=== PATIENT | male | born 1985 ===

== ENCOUNTER 2016-11-09 13:26 | Emergency (ER) | payer SELFPAY ==
[2016-11-09 13:45] VITALS: BMI 24.2
[2016-11-09 13:47] VITALS: TEMP 98.5; O2SAT 100
[2016-11-09] MEDS ORDERED: Sodium Chloride 0.9% 1,000 ML ONE ×3 (13:59→15:31)
[2016-11-09] MEDS ORDERED: Sodium Chloride 0.9% 1,000 ML IV ONE ×2 (14:12→15:19)
[2016-11-09 14:39] LABS: BASO # 0.1 K/uL (0.0-0.2); BASO % 0.9 % (0.0-2.0); EOS # 0.2 K/uL (0.0-0.7); EOS % 2.2 % (0.0-4.0); HEMATOCRIT 44.7 % (35.0-51.0); LYMPH # 3.2 K/uL (1.0-4.3); LYMPH % 44.7 % (20.0-40.0); MEAN CORPUSCULAR HEMOGLOBIN 28.4 pg (27.0-31.0); MEAN PLATELET VOLUME 8.9 fL (7.2-11.7); MONO # 0.4 K/uL (0.0-0.8); MONO % 5.7 % (0.0-10.0); WHITE BLOOD COUNT 7.1 K/uL (4.8-10.8)
[2016-11-09 14:42] LABS: MEAN CELL VOLUME 83.6 fL (80.0-94.0)
[2016-11-09 14:53] LABS: CHLORIDE 101 mmol/L (98-107); POTASSIUM 3.9 mmol/L (3.6-5.2); SODIUM 139 mmol/L (132-148)
[2016-11-09 14:55] LABS: GFR AFRICAN-AMERICAN > 60
[2016-11-09 14:56] LABS: ALB/GLOB RATIO 1.3 (1.0-2.1); ALKALINE PHOSPHATASE 70 U/L (38-126); ALT/SGPT 37 U/L (21-72); AST/SGOT 53 U/L (17-59); BILIRUBIN,TOTAL 0.8 mg/dL (0.2-1.3); BLOOD UREA NITROGEN 12 mg/dL (9-20); CALCIUM 8.5 mg/dl (8.6-10.4); CARBON DIOXIDE 19 mmol/L (22-30); GLUCOSE,RANDOM 102 mg/dL (75-110); TOTAL PROTEIN 8.1 g/dL (6.3-8.3)
[2016-11-09 14:57] LABS: ALCOHOL SERUM 181 mg/dl (0-10)
[2016-11-09 15:08] VITALS: BP 129/86; PULSE 88; RESP 18
--- NOTE | 2016-11-09 15:34 | C.PDOC ---
Time Seen by Provider: 11/09/16 14:04 Chief Complaint (Nursing): GI Problem History Per: Patient Onset/Duration Of Symptoms: Hrs (since walking up this morning) Current Symptoms Are (Timing): Still Present Context: Other (Heavy alcohol consumption last night) Severity: Moderate Quality Of Discomfort: Unable To Describe Associated Symptoms: Nausea, Vomiting Exacerbating Factors: Food Alleviating Factors: None Additional History Per: Prior Records Past Medical History Reviewed: Historical Data, Nursing Documentation, Vital Signs Vital Signs: Last Vital Signs Temp 98.5 F 11/09/16 13:43 Pulse 88 11/09/16 15:08 Resp 18 11/09/16 15:08 BP 129/86 11/09/16 15:08 Pulse Ox 100 11/09/16 15:35 - Medical History PMH: Asthma (never hospitalized), Fractures (right hand/right ankle fracture) Other PMH: Alcohol abuse Other Surgeries: Right foot. Family History: States: Unknown Family Hx - Social History Hx Tobacco Use: No Hx Alcohol Use: Yes Hx Substance Use: Yes (Marijuana) - Immunization History Hx Tetanus Toxoid Vaccination: No Hx Influenza Vaccination: No Hx Pneumococcal Vaccination: No Review Of Systems Except As Marked, All Systems Reviewed And Found Negative. Constitutional: Positive for: Malaise. Negative for: Fever Cardiovascular: Positive for: Palpitations. Negative for: Chest Pain Respiratory: Negative for: Shortness of Breath, Hemoptysis Gastrointestinal: Positive for: Nausea, Vomiting. Negative for: Abdominal Pain , Diarrhea, Melena, Hematochezia, Hematemesis Genitourinary: Negative for: Dysuria Musculoskeletal: Negative for: Neck Pain, Back Pain, Leg Pain Skin: Negative for: Rash Neurological: Positive for: Dizziness. Negative for: Weakness, Numbness, Seizures, Altered Mental Status, Headache Physical Exam - Physical Exam Appears: Other (AOB. Uncomfortable.) Skin: Normal Color, Warm, Dry, No Rash Head: Atraumatic, Normacephalic Eye(s): bilateral: PERRL, EOMI Neck: Normal ROM, No Midline Cervical Tenderness, No Step Off Deformity, Supple Chest: Symmetrical, No Deformity Cardiovascular: Rhythm Regular Respiratory: Normal Breath Sounds, No Accessory Muscle Use Gastrointestinal/Abdominal: Soft, No Tenderness, No Distention Extremity: Normal ROM, No Calf Tenderness, Other (boot on right foot) Neurological/Psych: Oriented x3, Normal Motor, Normal Sensation ED Course And Treatment - Laboratory Results Result Diagrams: 11/09/16 14:35 11/09/16 14:35 Lab Interpretation: No Acute Changes ECG: Interpreted By Me, Viewed By Me ECG Rhythm: Sinus Tachycardia, Nonspecific Changes Rate From EC O2 Sat by Pulse Oximetry: 100 Pulse Ox Interpretation: Normal Progress Note: Pt feels much better and wants to go home. I offered him detox admission, but he refused. So I gave him a list of detox programs. Reassessment Condition: Improved Progress - Interventions Interventions:: Observation, Intravenous fluid - Medications Administered Intravenous: Antiemetic, H-2 matthew - Data Reviewed Data Reviewed: Lab, EKG, Old records - Patient Status Patient status: Mostly improved - Continuity of Care Discussed patient case with:: Patient, ED Nurse - Patient Plan Patient Plan: Discharge, F/U with PCP Disposition Counseled Patient/Family Regarding: Studies Performed, Diagnosis, Need For Followup, Rx Given - Disposition Referrals: [facility] at [facility] [place] [Outside] Disposition: HOME/ ROUTINE Disposition Time: 16:14 Condition: IMPROVED Additional Instructions: Avoid alcohol. Follow up in the clinic. Return to the ER if you develop abdominal pain, bleeding, worsening of symptoms or if you have any other concerns. Prescriptions: Famotidine [Pepcid] 20 mg PO BID #30 tab Instructions: Abuse of Alcohol (ED) - Clinical Impression Clinical Impression: Alcohol abuse
--- NOTE | 2016-11-11 08:50 | CARD ---
APPROVED REPORT EKG Measurement Heart [id number] <Conclusion> Sinus tachycardia Otherwise normal ECG
== END 2016-11-09 16:25 | disposition home or self-care (01) ==
LOC: C.ER 13:26
DX: F10.10 Alcohol abuse, uncomplicated (principal); Y90.6 Blood alcohol level of 120-199 mg/100 ml
CPT/HCPCS: 80053; 80320; 83735; 85025; 93005; 96361; 96374; 96375; 99285; J2765; J7040

== ENCOUNTER 2016-11-12 19:03 | Observation (INO) | payer SELFPAY ==
[2016-11-12 19:04] VITALS: BMI 24.3
[2016-11-12] MEDS ORDERED: Multivitamin (MVI) 10 ML, Thiamine 100 MG, Folic Acid 1 MG in Sodium Chloride 0.9% 1,00... IV STA (19:22)
--- NOTE | 2016-11-12 19:23 | C.PDOC ---
History Of Present Illness 31 y/o male presents to the ED with alcohol withdrawal. Pt usually drinks 3 pints whiskey daily for the past 12 years. Last drink 3 days ago. Pt complaining of shakiness, restlessness, seeing shadows, crawling sensation and tachycardia. Denies vomiting, diarrhea, fever, chest pain, SOB or any other complaints. Time Seen by Provider: 11/12/16 19:21 Chief Complaint (Nursing): Substance Abuse History Per: Patient History/Exam Limitations: no limitations Onset/Duration Of Symptoms: Days Current Symptoms Are (Timing): Still Present Severity: Moderate Involuntary Hold By: None Recent travel outside of the [place]: No Past Medical History Reviewed: Historical Data, Nursing Documentation, Vital Signs Vital Signs: Last Vital Signs Temp 98.5 F 11/12/16 23:45 Pulse 63 11/13/16 03:59 Resp 16 11/13/16 03:59 BP 129/75 11/12/16 23:45 Pulse Ox 99 11/13/16 03:59 - Medical History PMH: Asthma (never hospitalized), Fractures (right hand/right ankle fracture) Family History: States: Unknown Family Hx - Social History Hx Tobacco Use: No Hx Alcohol Use: Yes Hx Substance Use: Yes (Marijuana) - Immunization History Hx Tetanus Toxoid Vaccination: No Hx Influenza Vaccination: No Hx Pneumococcal Vaccination: No Review Of Systems Constitutional: Negative for: Fever, Chills Cardiovascular: Positive for: Other (tachycardic) Psych: Positive for: Other (shaking, crawling sensation, seeing shadows) Physical Exam - Physical Exam Appears: Non-toxic, No Acute Distress Skin: Warm, Dry, No Rash Head: Atraumatic, Normacephalic Neck: Supple Chest: Symmetrical Cardiovascular: Rhythm Regular (tachycardic), No Murmur Respiratory: No Rales, No Rhonchi, No Wheezing Gastrointestinal/Abdominal: Soft, No Tenderness Extremity: Bilateral: Atraumatic Neurological/Psych: Oriented x3, Normal Speech ED Course And Treatment - Laboratory Results Result Diagrams: 11/12/16 19:30 11/12/16 19:30 O2 Sat by Pulse Oximetry: 100 (room air) Pulse Ox Interpretation: Normal Progress Note: Plan: CXR, labs, UA, IV fluids, ativan Reevaluation Time: 05:21 Reassessment Condition: Improved Critical Care Time - Critical Care Note Total Time (in mins): 30 Documented critical care: time excludes all time spent performing seperately billable procedures. ED OBSERVATION Discharge: Yes Date of observation admission: 11/12/16 Time of observation admission: 23:49 - Observation admission statement Patient is being placed in observation because:: alcohol withdrawal - Goals of Observation Goals of observation are:: crisis eval Disposition Counseled Patient/Family Regarding: Studies Performed, Diagnosis, Need For Followup - Disposition Disposition: HOME/ ROUTINE Disposition Time: 19:21 Condition: FAIR - Clinical Impression Clinical Impression: Alcohol abuse - Scribe Statement The provider has reviewed the documentation as recorded by the Jayce Barrios Provider Attestation: All medical record entries made by the Jayce were at my direction and personally dictated by me. I have reviewed the chart and agree that the record accurately reflects my personal performance of the history, physical exam, medical decision making, and the department course for this patient. I have also personally directed, reviewed, and agree with the discharge instructions and disposition. Decision To Admit - . Patient Diagnosis: Alcohol abuse
[2016-11-12 19:37] LABS: BASO # 0.1 K/uL (0.0-0.2); BASO % 0.5 % (0.0-2.0); EOS # 0.2 K/uL (0.0-0.7); EOS % 1.4 % (0.0-4.0); HEMATOCRIT 46.3 % (35.0-51.0); LYMPH # 2.6 K/uL (1.0-4.3); LYMPH % 24.4 % (20.0-40.0); MEAN CELL VOLUME 84.4 fL (80.0-94.0); MEAN CORPUSCULAR HEMOGLOBIN 28.1 pg (27.0-31.0); MEAN CORPUSCULAR HGB CONC 33.3 g/dL (33.0-37.0); MONO # 0.7 K/uL (0.0-0.8); MONO % 6.5 % (0.0-10.0); NRBC % 0.1 % (0.0-2.0); RED CELL DISTRIBUTION WIDTH 14.8 % (11.5-14.5); WHITE BLOOD COUNT 10.5 K/uL (4.8-10.8)
[2016-11-12 19:47] LABS: CHLORIDE 99 mmol/L (98-107); POTASSIUM 3.9 mmol/L (3.6-5.2); SODIUM 136 mmol/L (132-148)
[2016-11-12 19:49] LABS: ALB/GLOB RATIO 1.4 (1.0-2.1); ALKALINE PHOSPHATASE 76 U/L (38-126); AST/SGOT 33 U/L (17-59); BILIRUBIN,TOTAL 0.6 mg/dL (0.2-1.3); BLOOD UREA NITROGEN 15 mg/dL (9-20); CARBON DIOXIDE 24 mmol/L (22-30); GFR AFRICAN-AMERICAN > 60; TOTAL PROTEIN 8.3 g/dL (6.3-8.3)
[2016-11-12 19:50] LABS: ALT/SGPT 38 U/L (21-72); CALCIUM 9.5 mg/dl (8.6-10.4); GLUCOSE,RANDOM 103 mg/dL (75-110)
[2016-11-12 19:51] LABS: ALCOHOL SERUM < 10 mg/dl (0-10)
[2016-11-12 20:13] LABS: RBC URINE 1 /hpf (0-3); URINE BILIRUBIN NEGATIVE (NEGATIVE); URINE BLOOD NEGATIVE (NEGATIVE); URINE COLOR Straw (YELLOW); URINE GLUCOSE (UA) NORMAL (Normal); URINE KETONE TRACE mg/dL (NEGATIVE); URINE LEUKOCYTE ESTERASE NEG Leu/uL (Negative); URINE PROTEIN NEGATIVE (NEGATIVE); URINE UROBILINOGEN NORMAL mg/dL (0.2-1.0); WBC URINE < 1 /hpf (0-5)
[2016-11-13 04:00] VITALS: RESP 16
[2016-11-13 05:37] VITALS: BP 118/81; PULSE 93; TEMP 98; O2SAT 96
--- NOTE | 2016-11-13 07:39 | RAD ---
PROCEDURE: CHEST RADIOGRAPH, 1 VIEW HISTORY: Detox/Psy COMPARISON: None available. FINDINGS: LUNGS: Clear. PLEURA: No pneumothorax or pleural fluid seen. CARDIOVASCULAR: Normal. OSSEOUS STRUCTURES: No significant abnormalities. VISUALIZED UPPER ABDOMEN: Normal. OTHER FINDINGS: None. IMPRESSION: No active disease.
== END 2016-11-13 05:22 | disposition home or self-care (01) ==
LOC: C.ER 19:03 → SUPCPDRO 19:03 → C.9OBSV 23:40
PROVIDERS: ADMIT Emergency Medicine; ATTEND Emergency Medicine
DX: F10.239 Alcohol dependence with withdrawal, unspecified (principal); J45.909 Unspecified asthma, uncomplicated

== ENCOUNTER 2017-09-12 23:09 | Emergency (ER) | payer SELFPAY ==
[2017-09-12 23:09] VITALS: BMI 24.3
[2017-09-12] MEDS ORDERED: Sodium Chloride 0.9% 1,000 ML ONE (23:26)
[2017-09-12] MEDS ORDERED: Sodium Chloride 0.9% 1,000 ML IV ONE ×3 (23:37→23:50)
[2017-09-13] MEDS ORDERED: Sodium Chloride 0.9% 1,000 ML ONE ×2 (00:06→00:30)
--- NOTE | 2017-09-13 00:14 | C.PDOC ---
History Of Present Illness 32 y/o male with a PMHx of chronic alcoholism presents to the ED after drinking for past few days, also admits to using marijuana. Patient complains of nausea. No vomiting. Also reports some shaking of the extremities. Time Seen by Provider: 09/12/17 23:40 Chief Complaint (Nursing): Substance Abuse History Per: Patient History/Exam Limitations: no limitations Onset/Duration Of Symptoms: Days Current Symptoms Are (Timing): Still Present Modifying Factor(s): Alcohol, Marijuana Past Medical History Reviewed: Historical Data, Nursing Documentation, Vital Signs Vital Signs: Last Vital Signs Temp 98 F 09/13/17 02:01 Pulse 75 09/13/17 02:01 Resp 16 09/13/17 02:01 BP 126/78 09/13/17 02:01 Pulse Ox 100 09/13/17 04:16 - Medical History PMH: Asthma (never hospitalized), Fractures (right hand/right ankle fracture) Denies: Chronic Kidney Disease Other PMH: Alcoholism Other Surgeries: Right ankle surgery Family History: States: Unknown Family Hx - Social History Hx Tobacco Use: No Hx Alcohol Use: Yes Hx Substance Use: Yes (Marijuana) - Immunization History Hx Tetanus Toxoid Vaccination: No Hx Influenza Vaccination: No Hx Pneumococcal Vaccination: No Review Of Systems Except As Marked, All Systems Reviewed And Found Negative. Constitutional: Negative for: Fever, Chills Respiratory: Negative for: Shortness of Breath Gastrointestinal: Positive for: Nausea. Negative for: Vomiting Musculoskeletal: Positive for: Other (shaking of extremities) Psych: Positive for: Withdrawal Physical Exam - Physical Exam Appears: Non-toxic, No Acute Distress Skin: Normal Color, Warm, Dry Head: Atraumatic, Normacephalic Eye(s): bilateral: Normal Inspection, PERRL, EOMI Nose: Normal Oral Mucosa: Moist Neck: Normal ROM, Supple Chest: Symmetrical Cardiovascular: Rhythm Regular, No Murmur Respiratory: Normal Breath Sounds, No Accessory Muscle Use Gastrointestinal/Abdominal: Soft, No Tenderness, No Distention Extremity: Normal ROM, No Tenderness, No Swelling, Other (No tremors noted) Pulses: Left Radial: Normal, Right Radial: Normal Neurological/Psych: Oriented x3, Normal Speech Gait: Steady ED Course And Treatment - Laboratory Results Result Diagrams: 09/13/17 00:10 09/13/17 00:10 O2 Sat by Pulse Oximetry: 100 (RA) Pulse Ox Interpretation: Normal Medical Decision Making Medical Decision Making: Time: 23:49 Initial Plan: --Basic blood work --Urine drug screen --Lipase --Urinalysis --IVF hydration --IV Zofran, 4 mg --Reevaluation Labs reviewed: U tox + cannabinoids. CBC and urine unremarkable. 00:55 Chemistry shows low potassium. Patient given 20 meq potassium chloride PO. 4:10 On reevaluation patient states he feels better, wants to go home. No longer having tremors. Disposition Counseled Patient/Family Regarding: Diagnosis - Disposition Referrals: [facility] [Outside] Disposition: HOME/ ROUTINE Disposition Time: 04:13 Condition: STABLE Prescriptions: Hydroxyzine Pamoate [Vistaril] 25 mg PO Q6 #14 capsule Instructions: Polysubstance Abuse Forms: [facility] ([place]yan) - POA Present On Arrival: None - Clinical Impression Clinical Impression: Substance abuse - Scribe Statement The provider has reviewed the documentation as recorded by the Scribe (Alla Latham) Provider Attestation: All medical record entries made by the Scribe were at my direction and personally dictated by me. I have reviewed the chart and agree that the record accurately reflects my personal performance of the history, physical exam, medical decision making, and the department course for this patient. I have also personally directed, reviewed, and agree with the discharge instructions and disposition.
[2017-09-13 00:21] LABS: BASO # 0.1 K/uL (0.0-0.2); BASO % 1.3 % (0.0-2.0); EOS # 0.2 K/uL (0.0-0.7); EOS % 2.5 % (0.0-4.0); HEMOGLOBIN 15.6 g/dL (12.0-18.0); LYMPH # 2.1 K/uL (1.0-4.3); LYMPH % 28.8 % (20.0-40.0); MEAN CELL VOLUME 85.5 fL (80.0-94.0); MEAN CORPUSCULAR HEMOGLOBIN 29.3 pg (27.0-31.0); MEAN CORPUSCULAR HGB CONC 34.3 g/dL (33.0-37.0); MEAN PLATELET VOLUME 9.3 fL (7.2-11.7); MONO # 0.5 K/uL (0.0-0.8); MONO % 7.2 % (0.0-10.0); NEUT # 4.3 K/uL (1.8-7.0); NEUT % 60.2 % (50.0-75.0); RBC 5.32 Mil/uL (4.40-5.90); RED CELL DISTRIBUTION WIDTH 13.7 % (11.5-14.5); WHITE BLOOD COUNT 7.1 K/uL (4.8-10.8)
[2017-09-13 00:23] LABS: URINE BILIRUBIN NEGATIVE (NEGATIVE); URINE BLOOD NEGATIVE (NEGATIVE); URINE CLARITY Clear (Clear); URINE COLOR Straw (YELLOW); URINE GLUCOSE (UA) NORMAL (Normal); URINE LEUKOCYTE ESTERASE NEG Leu/uL (Negative); URINE PROTEIN NEGATIVE (NEGATIVE); URINE UROBILINOGEN NORMAL mg/dL (0.2-1.0)
[2017-09-13 00:27] LABS: ALB/GLOB RATIO 1.1 (1.0-2.1); ALBUMIN 4.7 g/dL (3.5-5.0); ALT/SGPT 31 U/L (21-72); AST/SGOT 37 U/L (17-59); BLOOD UREA NITROGEN 6 mg/dL (9-20); CALCIUM 9.5 mg/dl (8.6-10.4); GFR AFRICAN-AMERICAN > 60; GFR NON-AFRICAN AMERICAN > 60; LIPASE 44 U/L (23-300)
[2017-09-13 00:37] LABS: BARBITURATES, UR NEGATIVE (NEGATIVE); BENZODIAZEPINES, UR NEGATIVE (NEGATIVE); OPIATES, UR NEGATIVE (NEGATIVE); PHENCYCLIDINE, UR NEGATIVE (NEGATIVE)
[2017-09-13] MEDS ORDERED: Potassium Chloride 20 mEq/15 ml LIQ UD PO STA (00:55)
[2017-09-13] MEDS ORDERED: Potassium Chloride 20 mEq/15 ml LIQ UD ONE (01:31)
[2017-09-13 04:29] VITALS: BP 134/88; PULSE 88; RESP 18; TEMP 98.3; O2SAT 98
== END 2017-09-13 04:20 | disposition home or self-care (01) ==
LOC: C.ER 23:09
DX: F19.10 Other psychoactive substance abuse, uncomplicated (principal)
CPT/HCPCS: 80053; 81001; 83690; 85025; 96360; 96361; 99285; G0480; J7040

== ENCOUNTER 2017-11-22 12:25 | Inpatient (IN) | payer OTHER, SELFPAY ==
[2017-11-22 12:25] VITALS: BMI 24.3
[2017-11-22] MEDS ORDERED: Sodium Chloride 0.9% 1,000 ML IV ONE (13:19)
[2017-11-22 13:30] LABS: BASO # 0.1 K/uL (0.0-0.2); BASO % 0.8 % (0.0-2.0); EOS % 0.1 % (0.0-4.0); HEMOGLOBIN 15.3 g/dL (12.0-18.0); LYMPH # 1.8 K/uL (1.0-4.3); LYMPH % 15.3 % (20.0-40.0); MEAN CELL VOLUME 84.8 fL (80.0-94.0); MEAN CORPUSCULAR HEMOGLOBIN 29.9 pg (27.0-31.0); MEAN CORPUSCULAR HGB CONC 35.2 g/dL (33.0-37.0); MEAN PLATELET VOLUME 8.6 fL (7.2-11.7); MONO # 0.5 K/uL (0.0-0.8); MONO % 4.7 % (0.0-10.0); NEUT # 9.2 K/uL (1.8-7.0); NEUT % 79.1 % (50.0-75.0); RBC 5.12 Mil/uL (4.40-5.90); RED CELL DISTRIBUTION WIDTH 14.1 % (11.5-14.5)
[2017-11-22 13:33] LABS: WHITE BLOOD COUNT 11.6 K/uL (4.8-10.8)
[2017-11-22 13:43] LABS: ALB/GLOB RATIO 1.4 (1.0-2.1); ALBUMIN 4.6 g/dL (3.5-5.0); ALT/SGPT 29 U/L (21-72); AST/SGOT 41 U/L (17-59); BLOOD UREA NITROGEN 8 mg/dL (9-20); CALCIUM 8.9 mg/dl (8.6-10.4); GFR AFRICAN-AMERICAN > 60; GFR NON-AFRICAN AMERICAN > 60
[2017-11-22] MEDS ORDERED: Potassium Chloride 20 mEq ER Tab PO SCH (14:00)
[2017-11-22] MEDS ORDERED: Potassium Chloride 20 mEq 100 ML ONE (14:04)
[2017-11-22] MEDS ORDERED: Potassium Chloride 20 mEq ER Tab PO ONE (14:05)
[2017-11-22] MEDS ORDERED: Thiamine 100 mg/ml Inj IV ONE (14:43)
[2017-11-22] MEDS ORDERED: Thiamine 100 mg/ml Inj ONE (15:03)
[2017-11-22 15:12] LABS: URINE BILIRUBIN NEGATIVE (NEGATIVE); URINE BLOOD NEGATIVE (NEGATIVE); URINE CLARITY Clear (Clear); URINE COLOR Yellow (YELLOW); URINE GLUCOSE (UA) NORMAL (Normal); URINE LEUKOCYTE ESTERASE NEG Leu/uL (Negative); URINE PROTEIN 1+ mg/dL (NEGATIVE); URINE UROBILINOGEN NORMAL mg/dL (0.2-1.0)
--- NOTE | 2017-11-22 15:27 | C.PDOC ---
History Of Present Illness 32 y/o male, w/PMhx of daily ETOH use, presents to the ER complaining of feeling anxious and tremulous today. Patient reports that his last drink was in the morning today. Patient denies having suicidal ideation, homicidal ideation, CP, SOB, vomiting, diarrhea, and seizure activity. Time Seen by Provider: 11/22/17 13:05 Chief Complaint (Nursing): Substance Abuse History Per: Patient History/Exam Limitations: no limitations Onset/Duration Of Symptoms: Days Current Symptoms Are (Timing): Still Present Severity: Moderate Past Medical History Reviewed: Historical Data, Nursing Documentation, Vital Signs Vital Signs: Last Vital Signs Temp 100.0 F H 11/22/17 12:34 Pulse 106 H 11/22/17 15:28 Resp 16 11/22/17 15:28 BP 128/83 11/22/17 15:28 Pulse Ox 98 11/22/17 17:15 - Medical History PMH: Asthma (never hospitalized), Fractures (right hand/right ankle fracture) Denies: Chronic Kidney Disease Other Surgeries: Hx of surgeries Family History: States: No Known Family Hx - Social History Hx Tobacco Use: No Hx Alcohol Use: Yes Hx Substance Use: Yes - Immunization History Hx Tetanus Toxoid Vaccination: No Hx Influenza Vaccination: No Hx Pneumococcal Vaccination: No Review Of Systems Except As Marked, All Systems Reviewed And Found Negative. Constitutional: Negative for: Fever, Chills Psych: Positive for: Anxiety Physical Exam - Physical Exam Appears: Other (tremulous) Skin: Normal Color, Warm, Dry Head: Atraumatic, Normacephalic Eye(s): bilateral: Normal Inspection Nose: Normal Oral Mucosa: Moist Neck: Supple Chest: Symmetrical Cardiovascular: Rhythm Irregular (tachycardiac) Respiratory: Normal Breath Sounds, No Rales, No Rhonchi, No Wheezing Gastrointestinal/Abdominal: Normal Exam, Soft, No Tenderness, No Guarding, No Rebound Neurological/Psych: Oriented x3, Normal Speech ED Course And Treatment - Laboratory Results Result Diagrams: 11/22/17 13:27 11/22/17 13:27 ECG: Interpreted By Me, Viewed By Me ECG Rhythm: Sinus Tachycardia ECG Interpretation: Normal Interpretation Of ECG: NSR with normal intervals, normal axises, and no ST/ T wave abnormalities Rate From EC O2 Sat by Pulse Oximetry: 98 (RA) Pulse Ox Interpretation: Normal Medical Decision Making Medical Decision Making: Assessment: ETOH abuse/ withdrawal/ Hypokalemia Plan: --Lab --EKG Updates: Crisis evaluated patient. There are no ETOH detox beds available. Case discussed with Dr. Lopes, hospitalist. Patient will be admitetd to Telemetry for ETOH abuse/ withdrawal and hypokalemia under the service of Dr. Lopes. Disposition Discussed With Dr.: Marlys Olivier Doctor Will See Patient In The: Hospital Counseled Patient/Family Regarding: Studies Performed, Diagnosis - Disposition Disposition: HOSPITALIZED Disposition Time: 15:26 Condition: FAIR - Clinical Impression Clinical Impression: Alcohol abuse, Hypokalemia - Scribe Statement The provider has reviewed the documentation as recorded by the Jayce Malave Provider Attestation: All medical record entries made by the Jayce were at my direction and personally dictated by me. I have reviewed the chart and agree that the record accurately reflects my personal performance of the history, physical exam, medical decision making, and the department course for this patient. I have also personally directed, reviewed, and agree with the discharge instructions and disposition.
[2017-11-22 15:41] LABS: BARBITURATES, UR NEGATIVE (NEGATIVE); BENZODIAZEPINES, UR NEGATIVE (NEGATIVE); OPIATES, UR NEGATIVE (NEGATIVE); PHENCYCLIDINE, UR NEGATIVE (NEGATIVE)
[2017-11-22] MEDS ORDERED: Multivitamin (MVI) 10 ML, Thiamine 100 MG, Folic Acid 1 MG in Sodium Chloride 0.9% 1,00... IV ONE (16:17)
[2017-11-22] MEDS ORDERED: traZODone 25 mg Tab PO PRN (16:25)
--- NOTE | 2017-11-22 16:34 | CP.PCM.HP ---
<Lavinia Scott - Last Filed: 11/22/17 16:49> History of Present Illness - History of Present Illness History of Present Illness: Full Code Advanced directives: denies Healthcare proxy: Friend/Roommate: Alicia Mark #[phone] CC: "I want to stop drinking" HPI: 32 year old male with past medical history of panic attacks, alcohol abuse and asthma presents to the ER for alcohol withdrawal. Patient states his last drink was yesterday at 10pm. He states he started feeling hung over this morning when his friends started discussing with him that he has a drinking problem. Patient states during that conversation he agreed that he needs to stop drinking but then he started to feel like he was having a panic attack. He states he then decided to bring himself to the ER for detox. He denies seizures from withdrawal but states he does get hand shakes. He states he vomited 2x this morning and it was mostly bile since he has not had food in 3 days. He states he does feel like his heart is racing currently. He denies chest pain, blurry vision, headache, abdominal pain, shortness of breath, dysuria, diarrhea or constipation. PMD: denies (has seen Dr. 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 absent: Abdominal Pain, Constipation, Diarrhea - Genitourinary Genitourinary: absent: Dysuria - Musculoskeletal Musculoskeletal: absent: Numbness, Tingling - Neurological Neurological: Tremor. absent: Dizziness, Numbness, Tingling - Psychiatric Psychiatric: Anxiety Past Patient History - Infectious Disease Hx of Infectious Diseases: None - Past Medical History & Family History Past Medical History?: Yes - Past Social History Smoking Status: Never Smoked - CARDIAC Hx Cardiac Disorders: No - PULMONARY Hx Asthma: Yes (never hospitalized) - NEUROLOGICAL Hx Neurological Disorder: No - HEENT Hx HEENT Problems: No - RENAL Hx Chronic Kidney Disease: No - ENDOCRINE/METABOLIC Hx Endocrine Disorders: No - HEMATOLOGICAL/ONCOLOGICAL Hx Blood Disorders: No - INTEGUMENTARY Hx Dermatological Problems: No - MUSCULOSKELETAL/RHEUMATOLOGICAL Hx Fractures: Yes (right hand/right ankle fracture) - GASTROINTESTINAL Hx Gastrointestinal Disorders: No - GENITOURINARY/GYNECOLOGICAL Hx Genitourinary Disorders: No - PSYCHIATRIC Hx Substance Use: Yes - SURGICAL HISTORY Hx Surgeries: Yes Hx Musculoskeletal Surgery: Yes (RIGHT ANKLE) - ANESTHESIA Hx Anesthesia: Yes Meds Allergies/Adverse Reactions: Allergies Allergy/AdvReac Type Severity Reaction Status Date / Time shrimp Allergy ANAPHYLAXIS Verified 11/22/17 12:39 Physical Exam - Constitutional Appears: Non-toxic, Other (Anxious) - Head Exam Head Exam: ATRAUMATIC, NORMAL INSPECTION - Eye Exam Eye Exam: EOMI, Normal appearance, PERRL. absent: Scleral icterus Pupil Exam: NORMAL ACCOMODATION - ENT Exam ENT Exam: Mucous Membranes Dry - Respiratory Exam Respiratory Exam: Clear to Auscultation Bilateral, NORMAL BREATHING PATTERN. absent: Rales, Rhonchi, Wheezes, Stridor - Cardiovascular Exam Cardiovascular Exam: Tachycardia, REGULAR RHYTHM, +S1, +S2 - GI/Abdominal Exam GI & Abdominal Exam: Normal Bowel Sounds, Soft. absent: Distended, Guarding, Tenderness - Extremities Exam Extremities exam: Positive for: normal capillary refill, normal inspection. Negative for: pedal edema, tenderness - Neurological Exam Neurological exam: Alert, CN II-XII Intact, Oriented x3 - Expanded Neurological Exam Expanded Patient oriented to: person, place, time Cranial nerves: EOM's Intact: Normal Cerebellar Function: Finger to Nose: Abnormal Right, Abnormal Left (Patient had increased concentration completing ), Heel to Shirley: Normal Sensory exam: Lower Extremity Light Touch: Normal, Upper Extremity Light Touch: Normal Neuro motor strength exam: Left Upper Extremity: 5, Right Upper Extremity: 5, Left Lower Extremity: 5, Right Lower Extremity: 5 Coma Scale Eye Opening: SPONTANEOUS Coma Scale Motor Response: OBEYS COMMANDS - Psychiatric Exam Psychiatric exam: Anxious - Skin Skin Exam: Dry, Intact, Normal Color Results - Vital Signs Recent Vital Signs: Last Vital Signs Temp 100.0 F H 11/22/17 12:34 Pulse 106 H 11/22/17 15:28 Resp 16 11/22/17 15:28 BP 128/83 11/22/17 15:28 Pulse Ox 99 11/22/17 15:28 - Labs Result Diagrams: 11/22/17 13:27 11/22/17 13:27 Labs: Laboratory Results - last 24 hr 11/22/17 11/22/17 11/22/17 13:27 13:27 14:59 WBC 11.6 H D RBC 5.12 Hgb 15.3 Hct 43.4 MCV 84.8 MCH 29.9 MCHC 35.2 RDW 14.1 Plt Count 282 MPV 8.6 Neut % (Auto) 79.1 H Lymph % (Auto) 15.3 L Pratt % (Auto) 4.7 Eos % (Auto) 0.1 Baso % (Auto) 0.8 Neut # (Auto) 9.2 H Lymph # (Auto) 1.8 Pratt # (Auto) 0.5 Eos # (Auto) 0.0 Baso # (Auto) 0.1 Sodium 140 Potassium 2.9 L Chloride 99 Carbon Dioxide 16 L Anion Gap 28 H BUN 8 L Creatinine 0.6 L Est GFR ( Amer) > 60 Est GFR (Non-Af Amer) > 60 Random Glucose 98 Calcium 8.9 Magnesium Total Bilirubin 0.6 AST 41 ALT 29 Alkaline Phosphatase 78 Total Protein 8.0 Albumin 4.6 Globulin 3.4 Albumin/Globulin Ratio 1.4 Urine Color Yellow Urine Clarity Clear Urine pH 6.0 Ur Specific Edmond 1.018 Urine Protein 1+ H Urine Glucose (UA) Normal Urine Ketones 2+ H Urine Blood Negative Urine Nitrate Negative Urine Bilirubin Negative Urine Urobilinogen Normal Ur Leukocyte Esterase Neg Urine RBC (Auto) 1 Urine Opiates Screen Urine Methadone Screen Ur Barbiturates Screen Ur Phencyclidine Scrn Ur Amphetamines Screen U Benzodiazepines Scrn U Oth Cocaine Metabols U Cannabinoids Screen Alcohol, Quantitative 64 H 11/22/17 11/22/17 14:59 15:27 WBC RBC Hgb Hct MCV MCH MCHC RDW Plt Count MPV Neut % (Auto) Lymph % (Auto) Pratt % (Auto) Eos % (Auto) Baso % (Auto) Neut # (Auto) Lymph # (Auto) Pratt # (Auto) Eos # (Auto) Baso # (Auto) Sodium Potassium Chloride Carbon Dioxide Anion Gap BUN Creatinine Est GFR ( Amer) Est GFR (Non-Af Amer) Random Glucose Calcium Magnesium 1.4 L Total Bilirubin AST ALT Alkaline Phosphatase Total Protein Albumin Globulin Albumin/Globulin Ratio Urine Color Urine Clarity Urine pH Ur Specific Edmond Urine Protein Urine Glucose (UA) Urine Ketones Urine Blood Urine Nitrate Urine Bilirubin Urine Urobilinogen Ur Leukocyte Esterase Urine RBC (Auto) Urine Opiates Screen Negative Urine Methadone Screen Negative Ur Barbiturates Screen Negative Ur Phencyclidine Scrn Negative Ur Amphetamines Screen Negative U Benzodiazepines Scrn Negative U Oth Cocaine Metabols Negative U Cannabinoids Screen Positive H Alcohol, Quantitative Assessment & Plan - Assessment and Plan (Free Text) Assessment: Alcohol Withdrawal - Patient admitted to [facility] - secondary to Alcohol Abuse - Serum Alcohol 64 - CIWA protocol q4h - UDS: + Cannabinoids - Psych Consult: Dr. Peace --> help appreciated - Medications: * NS @ 100cc/hr with thiamine/multivitamin/Folic acid * Librium 25mg q6h * 1mg Ativan q4prn * Clonidine .1mg prn for elevated bp * Trazadone 50mgHS for sleep * Zofran 4mg IV q6prn for nausea Hypokalemia - K 2.9 - EKG: NSR @150bpm - Given 40meq of Kdur and 20meq Potassium chloride in the ER - f/u repeat BMP at 10pm and AM labs - repeat EKG 11/23/17 Leukocytosis - secondary to alcohol withdrawal - WBC 11.6 - f/u Chest x-ray - Continue to monitor Hypomagnesemia - Mg 1.4 - Repleated - f/u AM labs History of Asthma - Ventolin q4 prn for shortness of breath Prophylaxis - DVT risk of 0 - SCDs - GI prophylaxis not indicated Case discussed with Dr. Charline Scott PGY-1 <Marlys Olivier - Last Filed: 11/23/17 07:43> Results - Vital Signs Recent Vital Signs: Last Vital Signs Temp 98.1 F 11/22/17 23:55 Pulse 89 11/23/17 01:11 Resp 20 11/22/17 23:55 BP 136/91 H 11/22/17 23:55 Pulse Ox 98 11/22/17 23:55 - Labs Result Diagrams: 11/23/17 07:10 11/22/17 22:45 Labs: Laboratory Results - last 24 hr 11/22/17 11/22/17 11/22/17 13:27 13:27 14:59 WBC 11.6 H D RBC 5.12 Hgb 15.3 Hct 43.4 MCV 84.8 MCH 29.9 MCHC 35.2 RDW 14.1 Plt Count 282 MPV 8.6 Neut % (Auto) 79.1 H Lymph % (Auto) 15.3 L Pratt % (Auto) 4.7 Eos % (Auto) 0.1 Baso % (Auto) 0.8 Neut # (Auto) 9.2 H Lymph # (Auto) 1.8 Pratt # (Auto) 0.5 Eos # (Auto) 0.0 Baso # (Auto) 0.1 Sodium 140 Potassium 2.9 L Chloride 99 Carbon Dioxide 16 L Anion Gap 28 H BUN 8 L Creatinine 0.6 L Est GFR ( Amer) > 60 Est GFR (Non-Af Amer) > 60 Random Glucose 98 Calcium 8.9 Magnesium Total Bilirubin 0.6 AST 41 ALT 29 Alkaline Phosphatase 78 Total Protein 8.0 Albumin 4.6 Globulin 3.4 Albumin/Globulin Ratio 1.4 Urine Color Yellow Urine Clarity Clear Urine pH 6.0 Ur Specific [place] 1.018 Urine Protein 1+ H Urine Glucose (UA) Normal Urine Ketones 2+ H Urine Blood Negative Urine Nitrate Negative Urine Bilirubin Negative Urine Urobilinogen Normal Ur Leukocyte Esterase Neg Urine RBC (Auto) 1 Urine Opiates Screen Urine Methadone Screen Ur Barbiturates Screen Ur Phencyclidine Scrn Ur Amphetamines Screen U Benzodiazepines Scrn U Oth Cocaine Metabols U Cannabinoids Screen Alcohol, Quantitative 64 H 11/22/17 11/22/17 11/22/17 14:59 15:27 22:45 WBC RBC Hgb Hct MCV MCH MCHC RDW Plt Count MPV Neut % (Auto) Lymph % (Auto) Pratt % (Auto) Eos % (Auto) Baso % (Auto) Neut # (Auto) Lymph # (Auto) Pratt # (Auto) Eos # (Auto) Baso # (Auto) Sodium 136 Potassium 3.5 L Chloride 102 Carbon Dioxide 21 L Anion Gap 15 BUN 4 L Creatinine 0.6 L Est GFR ( Amer) > 60 Est GFR (Non-Af Amer) > 60 Random Glucose 106 Calcium 8.7 Magnesium 1.4 L 2.3 Total Bilirubin AST ALT Alkaline Phosphatase Total Protein Albumin Globulin Albumin/Globulin Ratio Urine Color Urine Clarity Urine pH Ur Specific [place] Urine Protein Urine Glucose (UA) Urine Ketones Urine Blood Urine Nitrate Urine Bilirubin Urine Urobilinogen Ur Leukocyte Esterase Urine RBC (Auto) Urine Opiates Screen Negative Urine Methadone Screen Negative Ur Barbiturates Screen Negative Ur Phencyclidine Scrn Negative Ur Amphetamines Screen Negative U Benzodiazepines Scrn Negative U Oth Cocaine Metabols Negative U Cannabinoids Screen Positive H Alcohol, Quantitative 11/23/17 07:10 WBC 8.3 RBC 4.81 Hgb 14.6 Hct 41.5 MCV 86.3 MCH 30.4 MCHC 35.2 RDW 14.1 Plt Count 222 MPV 8.8 Neut % (Auto) 59.9 Lymph % (Auto) 26.3 Pratt % (Auto) 9.3 Eos % (Auto) 3.9 Baso % (Auto) 0.6 Neut # (Auto) 5.0 Lymph # (Auto) 2.2 Pratt # (Auto) 0.8 Eos # (Auto) 0.3 Baso # (Auto) 0.1 Sodium Potassium Chloride Carbon Dioxide Anion Gap BUN Creatinine Est GFR ( Amer) Est GFR (Non-Af Amer) Random Glucose Calcium Magnesium Total Bilirubin AST ALT Alkaline Phosphatase Total Protein Albumin Globulin Albumin/Globulin Ratio Urine Color Urine Clarity Urine pH Ur Specific [place] Urine Protein Urine Glucose (UA) Urine Ketones Urine Blood Urine Nitrate Urine Bilirubin Urine Urobilinogen Ur Leukocyte Esterase Urine RBC (Auto) Urine Opiates Screen Urine Methadone Screen Ur Barbiturates Screen Ur Phencyclidine Scrn Ur Amphetamines Screen U Benzodiazepines Scrn U Oth Cocaine Metabols U Cannabinoids Screen Alcohol, Quantitative Attending/Attestation - Attestation I have personally seen and examined this patient.: Yes I have fully participated in the care of the patient.: Yes I have reviewed all pertinent clinical information: Yes Notes (Text): Patient was seen and examined with the resident. I agree with the documentation of the assessment and the plan 1.Alcohol abuse and alcohol withdrawal 2.Hypokalemia 3.Tachycardia plan discussed with the patient
[2017-11-22] MEDS ORDERED: Albuterol HFA 90 mcg/actuation (8 g) INH PRN (16:49)
[2017-11-22] MEDS: Magnesium Sulfate 1 gm in D5W 1 GM/100 ML BAG IVPB SCH ×2 (17:23→18:09)
--- NOTE | 2017-11-22 18:30 | RAD ---
HISTORY: Leukocytosis. COMPARISON: 11/12/2016 FINDINGS: LUNGS: No active pulmonary disease. PLEURA: No significant pleural effusion identified, no pneumothorax apparent. CARDIOVASCULAR: Normal. OSSEOUS STRUCTURES: No significant abnormalities. VISUALIZED UPPER ABDOMEN: Normal. OTHER FINDINGS: None. IMPRESSION: No active disease. No significant interval change compared to the prior examination(s).
[2017-11-22 23:32] LABS: BLOOD UREA NITROGEN 4 mg/dL (9-20); CALCIUM 8.7 mg/dl (8.6-10.4); GFR AFRICAN-AMERICAN > 60; GFR NON-AFRICAN AMERICAN > 60
[2017-11-23 01:10] VITALS: RESP 20
[2017-11-23 07:28] LABS: BASO # 0.1 K/uL (0.0-0.2); BASO % 0.6 % (0.0-2.0); EOS # 0.3 K/uL (0.0-0.7); EOS % 3.9 % (0.0-4.0); HEMOGLOBIN 14.6 g/dL (12.0-18.0); LYMPH # 2.2 K/uL (1.0-4.3); LYMPH % 26.3 % (20.0-40.0); MEAN CELL VOLUME 86.3 fL (80.0-94.0); MEAN CORPUSCULAR HEMOGLOBIN 30.4 pg (27.0-31.0); MEAN CORPUSCULAR HGB CONC 35.2 g/dL (33.0-37.0); MEAN PLATELET VOLUME 8.8 fL (7.2-11.7); MONO # 0.8 K/uL (0.0-0.8); MONO % 9.3 % (0.0-10.0); NEUT % 59.9 % (50.0-75.0); NRBC % 0.1 % (0.0-2.0); RBC 4.81 Mil/uL (4.40-5.90); RED CELL DISTRIBUTION WIDTH 14.1 % (11.5-14.5); WHITE BLOOD COUNT 8.3 K/uL (4.8-10.8)
[2017-11-23 07:57] LABS: ALB/GLOB RATIO 1.3 (1.0-2.1); ALT/SGPT 23 U/L (21-72); AST/SGOT 39 U/L (17-59); BLOOD UREA NITROGEN 4 mg/dL (9-20); GFR AFRICAN-AMERICAN > 60; GFR NON-AFRICAN AMERICAN > 60
[2017-11-23 08:13] VITALS: BP 135/90; TEMP 97.9; O2SAT 68
[2017-11-23] MEDS ORDERED: Potassium Chloride 20 mEq/15 ml LIQ UD PO ONE (09:59)
[2017-11-23] MEDS ORDERED: Multiple Vitamins Tab PO SCH (10:00)
--- NOTE | 2017-11-23 10:01 | PCM.PSYCH ---
Initial Psychiatric Evaluation - Initial Psychiatric Evaluation Type of Admission: Voluntary Legal Status: Capacity Chief Complaint (in patient's own words): I was drinking heavily.' History of Present Illness and Precipitating Events: Patient is a 32 year old HM, who lives with his brother, presented to the ED with complains of chest heaviness. Patient states he was self-detoxing at home from alcohol and was going through withdrawal symptoms so he decided to come in. Patient was consulted today. Patient denies any inpatient psychiatric hospitalization denies any follow-up with any psychiatrist past. He said when he was self-detoxing (drink 10-15 shots of vodka daily, and tapering to a few shots), he started to have withdrawal symptoms including nausea, shakes, cramps , headaches and sweating. Patient reports some irritability but denies any feelings of hopelessness or helplessness. He denies any suicidal ideation or any homicidal ideation. He denies any auditory or visual hallucinations or paranoia. Medical Hx: denies Current Medications: Active Medications Generic Name Dose Route Start Last Admin Trade Name Freq PRN Reason Stop Dose Admin Albuterol 1 puff 11/22/17 16:49 Ventolin Hfa 90 Mcg/Actuation (8 G) INH RQ4 PRN Shortness of Breath Chlordiazepoxide 25 mg 11/23/17 12:00 Librium PO 11/27/17 11:59 Q6 MARCELINO Taper Clonidine HCl 0.1 mg 11/22/17 16:24 Catapres PO Q4 PRN Systolic Blood Pressure Folic Acid 1 mg 11/23/17 10:00 11/23/17 09:41 Folic Acid PO 1 mg DAILY MARCELINO Administration Lorazepam 1 mg 11/22/17 16:27 Ativan IVP Q6H PRN Symptoms of alcohol withdrawl Multivitamins 1 tab 11/23/17 10:00 11/23/17 09:41 Hexavitamin PO 1 tab DAILY MARCELINO Administration Ondansetron HCl 4 mg 11/22/17 16:17 11/22/17 22:53 Zofran Inj IVP 4 mg Q6 PRN Administration Nausea/Vomiting Thiamine HCl 100 mg 11/23/17 10:00 Vitamin B1 Tab PO DAILY MARCELINO Trazodone HCl 50 mg 11/22/17 22:00 11/22/17 22:19 Desyrel PO 50 mg HS MARCELINO Administration Past Psychiatric History - Past Psychiatric History Previous Treatment History: None Pertinent Medical Hx (Current Medical&Sleep Prob, Allergies): Allergies Allergy/AdvReac Type Severity Reaction Status Date / Time shrimp Allergy ANAPHYLAXIS Verified 11/22/17 12:39 Albuterol HFA [Ventolin HFA 90 mcg/actuation (8 g)] 2 puff IH [id number] PRN Hydroxyzine Pamoate [Vistaril] 25 mg PO Q6 #14 capsule 09/13/17 Review of Systems - Review of Systems All systems: reviewed and no additional remarkable complaints except - Psychiatric Psychiatric: Anxiety, Irritability. absent: Suicidal Ideation Mental Status Examination - Personal Presentation Personal Presentation: Looks stated age - Affect Affect: Constricted - Motor Activity Motor Activity: Calm - Reliability in Providing Information Reliability in Providing Information: Fair - Speech Speech: Organized - Mood Mood: Anxious - Formal Thought Process Formal Thought Process: No Impairment - Obsessions/Compulsions Obsessions: No Compulsions: No - Cognitive Functions Orientation: Person, Place, Situation, Time Sensorium: Alert Attention/Concentration: Attentive Abstract Thinking: [place] Estimate of Intelligence: Below average Judgement: Imparied, as evidence by: Poor judgement, Imparied, as evidence by: Lack of insight into illness - Risk Risk: Withdrawal, Diminished functioning - Limitations Limitations: Living alone DSM 5 DX - DSM 5 DSM 5 Diagnosis: Alcohol use disorder severe Alcohol withdrawal uncomplicated - Recommended/Plan of Treatment Treatment Recommendations and Plan of Treatment: Alcohol use disorder severe CBT Psychoeducation Supportive therapy, individual therapy Use [place] for abstinence Alcohol withdrawal uncomplicated CBT Psychoeducation Supportive therapy, individual therapy Librium when necessary Librium taper folic acid/thiamine/multivitamin Patient psychiatrically stable and cleared for discharge - Smoking Cessation Smoking Cessation Initiated: No
--- NOTE | 2017-11-23 10:33 | CP.PCM.DIS ---
<Antonio Campos - Last Filed: 11/23/17 10:29> Provider - Provider Date of Admission: 11/22/17 15:25 Attending physician: Marlys Olivier MD Primary care physician: Clinic Consults: Psych: Vitor Time Spent in preparation of Discharge (in minutes): 45 Hospital Course - Lab Results Lab Results: Most Recent Lab Values WBC 8.3 K/uL (4.8-10.8) 11/23/17 07:10 RBC 4.81 Mil/uL (4.40-5.90) 11/23/17 07:10 Hgb 14.6 g/dL (12.0-18.0) 11/23/17 07:10 Hct 41.5 % (35.0-51.0) 11/23/17 07:10 MCV 86.3 fL (80.0-94.0) 11/23/17 07:10 MCH 30.4 pg (27.0-31.0) 11/23/17 07:10 MCHC 35.2 g/dL (33.0-37.0) 11/23/17 07:10 RDW 14.1 % (11.5-14.5) 11/23/17 07:10 Plt Count 222 K/uL (130-400) 11/23/17 07:10 MPV 8.8 fL (7.2-11.7) 11/23/17 07:10 Neut % (Auto) 59.9 % (50.0-75.0) 11/23/17 07:10 Lymph % (Auto) 26.3 % (20.0-40.0) 11/23/17 07:10 [place] % (Auto) 9.3 % (0.0-10.0) 11/23/17 07:10 Eos % (Auto) 3.9 % (0.0-4.0) 11/23/17 07:10 Baso % (Auto) 0.6 % (0.0-2.0) 11/23/17 07:10 Neut # (Auto) 5.0 K/uL (1.8-7.0) 11/23/17 07:10 Lymph # (Auto) 2.2 K/uL (1.0-4.3) 11/23/17 07:10 [place] # (Auto) 0.8 K/uL (0.0-0.8) 11/23/17 07:10 Eos # (Auto) 0.3 K/uL (0.0-0.7) 11/23/17 07:10 Baso # (Auto) 0.1 K/uL (0.0-0.2) 11/23/17 07:10 Sodium 138 mmol/L (132-148) 11/23/17 07:10 Potassium 3.5 mmol/L (3.6-5.2) L 11/23/17 07:10 Chloride 105 mmol/L (98-107) 11/23/17 07:10 Carbon Dioxide 24 mmol/L (22-30) 11/23/17 07:10 Anion Gap 13 (10-20) 11/23/17 07:10 BUN 4 mg/dL (9-20) L 11/23/17 07:10 Creatinine 0.7 mg/dL (0.8-1.5) L 11/23/17 07:10 Est GFR ( Amer) > 60 11/23/17 07:10 Est GFR (Non-Af Amer) > 60 11/23/17 07:10 Random Glucose 92 mg/dL (75-110) 11/23/17 07:10 Calcium 9.0 mg/dl (8.6-10.4) 11/23/17 07:10 Phosphorus 3.0 mg/dL (2.5-4.5) 11/23/17 07:10 Magnesium 2.3 mg/dL (1.6-2.3) 11/23/17 07:10 Total Bilirubin 0.8 mg/dL (0.2-1.3) 11/23/17 07:10 AST 39 U/L (17-59) 11/23/17 07:10 ALT 23 U/L (21-72) 11/23/17 07:10 Alkaline Phosphatase 68 U/L (38-126) 11/23/17 07:10 Total Protein 7.1 g/dL (6.3-8.3) 11/23/17 07:10 Albumin 4.0 g/dL (3.5-5.0) 11/23/17 07:10 Globulin 3.2 gm/dL (2.2-3.9) 11/23/17 07:10 Albumin/Globulin Ratio 1.3 (1.0-2.1) 11/23/17 07:10 Urine Color Yellow (YELLOW) 11/22/17 14:59 Urine Clarity Clear (Clear) 11/22/17 14:59 Urine pH 6.0 (5.0-8.0) 11/22/17 14:59 Ur Specific [place] 1.018 (1.003-1.030) 11/22/17 14:59 Urine Protein 1+ mg/dL (NEGATIVE) H 11/22/17 14:59 Urine Glucose (UA) Normal mg/dL (Normal) 11/22/17 14:59 Urine Ketones 2+ mg/dL (NEGATIVE) H 11/22/17 14:59 Urine Blood Negative (NEGATIVE) 11/22/17 14:59 Urine Nitrate Negative (NEGATIVE) 11/22/17 14:59 Urine Bilirubin Negative (NEGATIVE) 11/22/17 14:59 Urine Urobilinogen Normal mg/dL (0.2-1.0) 11/22/17 14:59 Ur Leukocyte Esterase Neg Carina/uL (Negative) 11/22/17 14:59 Urine RBC (Auto) 1 /hpf (0-3) 11/22/17 14:59 Urine Opiates Screen Negative (NEGATIVE) 11/22/17 14:59 Urine Methadone Screen Negative (NEGATIVE) 11/22/17 14:59 Ur Barbiturates Screen Negative (NEGATIVE) 11/22/17 14:59 Ur Phencyclidine Scrn Negative (NEGATIVE) 11/22/17 14:59 Ur Amphetamines Screen Negative (NEGATIVE) 11/22/17 14:59 U Benzodiazepines Scrn Negative (NEGATIVE) 11/22/17 14:59 U Oth Cocaine Metabols Negative (NEGATIVE) 11/22/17 14:59 U Cannabinoids Screen Positive (NEGATIVE) H 11/22/17 14:59 Alcohol, Quantitative 64 mg/dl (0-10) H 11/22/17 13:27 - Hospital Course Hospital Course: On admission: 32 year old male with past medical history of panic attacks, alcohol abuse and asthma presents to the ER for alcohol withdrawal. Patient states his last drink was yesterday at 10pm. He states he started feeling hung over this morning when his friends started discussing with him that he has a drinking problem. Patient states during that conversation he agreed that he needs to stop drinking but then he started to feel like he was having a panic attack. He states he then decided to bring himself to the ER for detox. He denies seizures from withdrawal but states he does get hand shakes. He states he vomited 2x this morning and it was mostly bile since he has not had food in 3 days. He states he does feel like his heart is racing currently. He denies chest pain, blurry vision, headache, abdominal pain, shortness of breath, dysuria, diarrhea or constipation. Hospital course: Electrolytes were repleated. CIWA 0 which does not require medications. Patient was seen by psych and does not require detox. Will be discharged on thiamine, folic acid and multivitamin. Made appointment for him on Wednesday for [facility] as well as provided with AA information. Was given information to follow up in the clinic with Dr. Scott. Discharge Exam - Head Exam Head Exam: ATRAUMATIC, NORMAL INSPECTION - Eye Exam Eye Exam: EOMI, Normal appearance, PERRL Pupil Exam: NORMAL ACCOMODATION, PERRL - Respiratory Exam Respiratory Exam: Clear to PA & Lateral, NORMAL BREATHING PATTERN, UNREMARKABLE - Cardiovascular Exam Cardiovascular Exam: REGULAR RHYTHM. absent: Tachycardia - GI/Abdominal Exam GI & Abdominal Exam: Normal Bowel Sounds, Soft, Unremarkable. absent: Distended , Tenderness - Neurological Exam Neurological exam: Alert, CN II-XII Intact, Normal Gait, Oriented x3, Reflexes Normal - Psychiatric Exam Psychiatric exam: Normal Affect, Normal Mood - Skin Skin Exam: Dry, Intact, Normal Color, Warm Discharge Plan - Discharge Medications Prescriptions: Folic Acid 1 mg PO DAILY #30 tab Multivitamins [Hexavitamin] 1 tab PO DAILY #30 tab Thiamine [Vitamin B1 Tab] 100 mg PO DAILY #30 tab traZODone [Desyrel] 25 mg PO HS PRN #5 tab PRN Reason: Insomnia - Follow Up Plan Condition: FAIR Disposition: HOME/ ROUTINE Instructions: Alcohol Abuse and Alcoholism (DC), Folic Acid, Trazodone, Vitamins (Multiple/Oral), Marijuana Use and Addiction (DC), Hypokalemia (DC), Hypokalemia (GEN) Additional Instructions: Please come to [facility] Wednesday the at 830 am for your appointment. I have attached information to the office. Someone will be calling you for preregistration. Please follow up in the clinic with Dr. Scott. I have attached the information for the clinic downstairs. Please call to make an appointment. Please take the Thiamine, Folic acid and multivitamin as prescribed. Please come back to the ED if symptoms worsen Referrals: Alcoholics Anonymous [Outside] [facility] [Outside] [facility] [Outside] <Marlys Olivier - Last Filed: 11/23/17 11:04> Provider - Provider Date of Admission: 11/22/17 15:25 Attending physician: Marlys Olivier MD Hospital Course - Lab Results Lab Results: Most Recent Lab Values WBC 8.3 K/uL (4.8-10.8) 11/23/17 07:10 RBC 4.81 Mil/uL (4.40-5.90) 11/23/17 07:10 Hgb 14.6 g/dL (12.0-18.0) 11/23/17 07:10 Hct 41.5 % (35.0-51.0) 11/23/17 07:10 MCV 86.3 fL (80.0-94.0) 11/23/17 07:10 MCH 30.4 pg (27.0-31.0) 11/23/17 07:10 MCHC 35.2 g/dL (33.0-37.0) 11/23/17 07:10 RDW 14.1 % (11.5-14.5) 11/23/17 07:10 Plt Count 222 K/uL (130-400) 11/23/17 07:10 MPV 8.8 fL (7.2-11.7) 11/23/17 07:10 Neut % (Auto) 59.9 % (50.0-75.0) 11/23/17 07:10 Lymph % (Auto) 26.3 % (20.0-40.0) 11/23/17 07:10 [place] % (Auto) 9.3 % (0.0-10.0) 11/23/17 07:10 Eos % (Auto) 3.9 % (0.0-4.0) 11/23/17 07:10 Baso % (Auto) 0.6 % (0.0-2.0) 11/23/17 07:10 Neut # (Auto) 5.0 K/uL (1.8-7.0) 11/23/17 07:10 Lymph # (Auto) 2.2 K/uL (1.0-4.3) 11/23/17 07:10 [place] # (Auto) 0.8 K/uL (0.0-0.8) 11/23/17 07:10 Eos # (Auto) 0.3 K/uL (0.0-0.7) 11/23/17 07:10 Baso # (Auto) 0.1 K/uL (0.0-0.2) 11/23/17 07:10 Sodium 138 mmol/L (132-148) 11/23/17 07:10 Potassium 3.5 mmol/L (3.6-5.2) L 11/23/17 07:10 Chloride 105 mmol/L (98-107) 11/23/17 07:10 Carbon Dioxide 24 mmol/L (22-30) 11/23/17 07:10 Anion Gap 13 (10-20) 11/23/17 07:10 BUN 4 mg/dL (9-20) L 11/23/17 07:10 Creatinine 0.7 mg/dL (0.8-1.5) L 11/23/17 07:10 Est GFR ( Amer) > 60 11/23/17 07:10 Est GFR (Non-Af Amer) > 60 11/23/17 07:10 Random Glucose 92 mg/dL (75-110) 11/23/17 07:10 Calcium 9.0 mg/dl (8.6-10.4) 11/23/17 07:10 Phosphorus 3.0 mg/dL (2.5-4.5) 11/23/17 07:10 Magnesium 2.3 mg/dL (1.6-2.3) 11/23/17 07:10 Total Bilirubin 0.8 mg/dL (0.2-1.3) 11/23/17 07:10 AST 39 U/L (17-59) 11/23/17 07:10 ALT 23 U/L (21-72) 11/23/17 07:10 Alkaline Phosphatase 68 U/L (38-126) 11/23/17 07:10 Total Protein 7.1 g/dL (6.3-8.3) 11/23/17 07:10 Albumin 4.0 g/dL (3.5-5.0) 11/23/17 07:10 Globulin 3.2 gm/dL (2.2-3.9) 11/23/17 07:10 Albumin/Globulin Ratio 1.3 (1.0-2.1) 11/23/17 07:10 Urine Color Yellow (YELLOW) 11/22/17 14:59 Urine Clarity Clear (Clear) 11/22/17 14:59 Urine pH 6.0 (5.0-8.0) 11/22/17 14:59 Ur Specific [place] 1.018 (1.003-1.030) 11/22/17 14:59 Urine Protein 1+ mg/dL (NEGATIVE) H 11/22/17 14:59 Urine Glucose (UA) Normal mg/dL (Normal) 11/22/17 14:59 Urine Ketones 2+ mg/dL (NEGATIVE) H 11/22/17 14:59 Urine Blood Negative (NEGATIVE) 11/22/17 14:59 Urine Nitrate Negative (NEGATIVE) 11/22/17 14:59 Urine Bilirubin Negative (NEGATIVE) 11/22/17 14:59 Urine Urobilinogen Normal mg/dL (0.2-1.0) 11/22/17 14:59 Ur Leukocyte Esterase Neg [place]ina/uL (Negative) 11/22/17 14:59 Urine RBC (Auto) 1 /hpf (0-3) 11/22/17 14:59 Urine Opiates Screen Negative (NEGATIVE) 11/22/17 14:59 Urine Methadone Screen Negative (NEGATIVE) 11/22/17 14:59 Ur Barbiturates Screen Negative (NEGATIVE) 11/22/17 14:59 Ur Phencyclidine Scrn Negative (NEGATIVE) 11/22/17 14:59 Ur Amphetamines Screen Negative (NEGATIVE) 11/22/17 14:59 U Benzodiazepines Scrn Negative (NEGATIVE) 11/22/17 14:59 U Oth Cocaine Metabols Negative (NEGATIVE) 11/22/17 14:59 U Cannabinoids Screen Positive (NEGATIVE) H 11/22/17 14:59 Alcohol, Quantitative 64 mg/dl (0-10) H 11/22/17 13:27 Attending/Attestation - Attestation I have personally seen and examined this patient.: Yes I have fully participated in the care of the patient.: Yes I have reviewed all pertinent clinical information, including history, physical exam and plan: Yes Notes (Text): seen and examined. Stable for discharge Distribution Associate to stop alcohol 11/23/17 11:03
--- NOTE | 2017-11-23 12:37 | CARD ---
APPROVED REPORT EKG Measurement Heart [id number] <Conclusion> Normal sinus rhythm Normal ECG
[2017-11-23 14:30] VITALS: PULSE 58
--- NOTE | 2017-11-24 05:48 | CARD ---
APPROVED REPORT EKG Measurement Heart [id number] <Conclusion> Normal sinus rhythm Normal ECG
== END 2017-11-23 13:46 | disposition home or self-care (01) | DRG 750 ==
LOC: C.ER 12:25 → C.9E 15:25 → C.6T 20:40
PROVIDERS: ADMIT Internal Medicine; ATTEND Internal Medicine
PROC: HZ2ZZZZ Detoxification Services for Substance Abuse Treatment (ICD-10-PCS; principal; 2017-11-22)
DX: F10.230 Alcohol dependence with withdrawal, uncomplicated (principal); E87.6 Hypokalemia; F10.220 Alcohol dependence with intoxication, uncomplicated; F12.10 Cannabis abuse, uncomplicated; Y90.3 Blood alcohol level of 60-79 mg/100 ml; J45.909 Unspecified asthma, uncomplicated; F41.0 Panic disorder [episodic paroxysmal anxiety]

== ENCOUNTER 2018-07-17 13:32 | Observation (INO) | payer OTHER ==
[2018-07-17 13:33] VITALS: BMI 24.3
--- NOTE | 2018-07-17 13:58 | C.PDOC ---
History Of Present Illness 33 year old male is brought into the emergency department by ambulance with complaints of anxiety. Patient states that he has been binge drinking for the last two days. Patient was given Ketamine 70mg en route to the hospital. Patient states that he came to the ED because he "didn't want to in front of his brother". Patient denies suicidal or homicidal ideation. Time Seen by Provider: 07/17/18 13:39 Chief Complaint (Nursing): Psychiatric Evaluation History Per: Patient History/Exam Limitations: no limitations Onset/Duration Of Symptoms: Hrs Current Symptoms Are (Timing): Still Present Suicide/Self Injury Attempted (Context): None Modifying Factor(s): Alcohol Associated Symptoms: Anxiety. denies: Suicidal Thoughts, Suicidal Plan Past Medical History Reviewed: Historical Data, Nursing Documentation, Vital Signs Vital Signs: Last Vital Signs Temp 99.4 F 07/17/18 13:50 Pulse 128 H 07/17/18 13:50 Resp 24 07/17/18 13:50 BP 166/99 H 07/17/18 13:50 Pulse Ox 96 07/17/18 13:50 - Medical History PMH: Asthma (never hospitalized), Fractures (right hand/right ankle fracture) Denies: Chronic Kidney Disease Surgical History: No Surg Hx - [facility] DETOXIFICATION SERVICES FOR SUBSTANCE ABUSE TREATMENT (11/22/17) Family History: States: No Known Family Hx - Social History Hx Tobacco Use: No Hx Alcohol Use: Yes Hx Substance Use: Yes - Immunization History Hx Tetanus Toxoid Vaccination: No Hx Influenza Vaccination: No Hx Pneumococcal Vaccination: No Review Of Systems Except As Marked, All Systems Reviewed And Found Negative. Psych: Positive for: Anxiety Physical Exam - Physical Exam Appears: Non-toxic, In Acute Distress (anxious) Skin: Warm, Dry Head: Atraumatic, Normacephalic Eye(s): bilateral: Normal Inspection, PERRL, EOMI Oral Mucosa: Moist Neck: Normal, Supple Chest: Symmetrical, No Tenderness Cardiovascular: Rhythm Regular (tachycardic), No Murmur Respiratory: Normal Breath Sounds, No Rales, No Rhonchi, No Wheezing Gastrointestinal/Abdominal: Soft, No Tenderness Neurological/Psych: Oriented x3, Normal Speech, Normal Cognition ED Course And Treatment - Laboratory Results Result Diagrams: 07/17/18 14:00 07/17/18 14:00 Interpretation Of ECG: Sinus tachycardia at 117bpm, normal intervals, normal axis, no ST/T wave abnormalities. O2 Sat by Pulse Oximetry: 96 (RA) Pulse Ox Interpretation: Normal Medical Decision Making Medical Decision Making: Plan: EKG Chemistry CBC Glucose POC Urinalysis Assessment: Alcohol abuse, anxiety. Disposition Discussed With Dr.: Joe Ro Doctor Will See Patient In The: Hospital Counseled Patient/Family Regarding: Studies Performed, Diagnosis - Disposition Disposition: HOSPITALIZED Disposition Time: 16:37 Condition: FAIR Forms: [facility] [facility] (B[place]ian) - Clinical Impression Clinical Impression: Alcohol abuse, Hypokalemia - Scribe Statement The provider has reviewed the documentation as recorded by the Scribe (Varghese Lópezvi) Provider Attestation: All medical record entries made by the Scribe were at my direction and personally dictated by me. I have reviewed the chart and agree that the record accurately reflects my personal performance of the history, physical exam, medical decision making, and the department course for this patient. I have also personally directed, reviewed, and agree with the discharge instructions and disposition.
[2018-07-17 14:04] LABS: BASO % 0.7 % (0.0-2.0); EOS % 0.5 % (0.0-4.0); HEMOGLOBIN 14.4 g/dL (12.0-18.0); LYMPH # 1.4 K/uL (1.0-4.3); LYMPH % 20.2 % (20.0-40.0); MEAN CELL VOLUME 85.3 fL (80.0-94.0); MEAN CORPUSCULAR HEMOGLOBIN 28.3 pg (27.0-31.0); MEAN CORPUSCULAR HGB CONC 33.2 g/dL (33.0-37.0); MEAN PLATELET VOLUME 9.3 fL (7.2-11.7); MONO # 0.4 K/uL (0.0-0.8); MONO % 5.5 % (0.0-10.0); NEUT # 4.9 K/uL (1.8-7.0); NEUT % 73.1 % (50.0-75.0); RBC 5.09 Mil/uL (4.40-5.90); RED CELL DISTRIBUTION WIDTH 14.3 % (11.5-14.5); WHITE BLOOD COUNT 6.8 K/uL (4.8-10.8)
[2018-07-17 14:32] LABS: ALB/GLOB RATIO 1.6 (1.0-2.1); ALBUMIN 4.9 g/dL (3.5-5.0); ALT/SGPT 28 U/L (21-72); AST/SGOT 36 U/L (17-59); BLOOD UREA NITROGEN 9 mg/dL (9-20); CALCIUM 8.9 mg/dl (8.6-10.4); GFR NON-AFRICAN AMERICAN > 60
[2018-07-17 15:29] LABS: SQUAMOUS EPITHIAL < 1 /hpf (0-5); URINE BACTERIA RARE (<OCC); URINE BILIRUBIN NEGATIVE (NEGATIVE); URINE BLOOD NEGATIVE (NEGATIVE); URINE CLARITY Clear (Clear); URINE COLOR Yellow (YELLOW); URINE GLUCOSE (UA) NORMAL (Normal); URINE LEUKOCYTE ESTERASE NEG Leu/uL (Negative); URINE PROTEIN 2+ mg/dL (NEGATIVE); URINE UROBILINOGEN NORMAL mg/dL (0.2-1.0)
[2018-07-17 15:51] LABS: BARBITURATES, UR NEGATIVE (NEGATIVE); BENZODIAZEPINES, UR NEGATIVE (NEGATIVE); OPIATES, UR NEGATIVE (NEGATIVE); PHENCYCLIDINE, UR NEGATIVE (NEGATIVE)
[2018-07-17] MEDS ORDERED: Potassium Chloride 20 mEq ER Tab PO STA (15:54)
[2018-07-17] MEDS ORDERED: Sodium Chloride 0.9% 1,000 ML IV ONE (15:54)
[2018-07-17] MEDS ORDERED: Potassium Chloride 20 mEq ER Tab PO ONE (16:04)
[2018-07-17] MEDS ORDERED: Sodium Chloride 0.9% 1,000 ML ONE (16:04)
--- NOTE | 2018-07-17 18:46 | RAD ---
Chest x-ray single frontal view HISTORY: Alcohol abuse. Comparison: None available. Findings: No focal infiltrate or effusion. Heart size within limits. Impression: No focal infiltrate or effusion.
[2018-07-17] MEDS ORDERED: Thiamine 100 mg/ml Inj IV ONE (20:15)
[2018-07-17] MEDS: Magnesium Sulfate 1 gm in D5W 1 GM/100 ML BAG IVPB SCH ×2 (21:30→22:00)
[2018-07-17] MEDS ORDERED: Magnesium Sulfate 1 gm in D5W 1 GM/100 ML BAG IVPB ONE (21:41)
[2018-07-17] MEDS ORDERED: Lactated Ringer's 1,000 ML IV SCH (23:45)
[2018-07-18] MEDS ORDERED: Lactated Ringer's 1,000 ML ONE (00:03)
--- NOTE | 2018-07-18 00:17 | CP.PCM.HP ---
<Grady Alvarez - Last Filed: 07/18/18 07:47> History of Present Illness - History of Present Illness History of Present Illness: PGY1 H&P for medicine hospitalist This is a 33 year old male with PMH of EtOH abuse, anxiety, asthma, who presents with 1 day history of bilateral hand cramping and tightening of the muscles after a 2 day binge drinking episode. Pt reports that he drank 1 bottle of wine and a lot of hard liquor. Treated with ketamine in the field and resolution of symptoms. Pt's last drink was the night of 07/16/18. Pt denies fever, chills, chest pain, sob, abdominal pain, n/v/d. Pt is currently complaining of a frontal headache, nonradiating. Denies visual changes. PMD: none PMH: EtOh abuse, anxiety, asthma PSH: right ankle surgery 2016 Meds: trazodone (does not take it), biotene, magnesium OTC Allx: NKDA, shrimp (anaphylaxis) FHx: alcoholism, males with heart problems, uncle who at age 35 due to [place] Social hx: works at [employer], EtOH binge drinking, more than 5 drinks a day when he drinks but has periods of abstinence for periods of 3 weeks at a time. (+) marijuana use. No history of withdrawal or detox. Present on Admission - Present on Admission Any Indicators Present on Admission: No Review of Systems - Review of Systems All systems: reviewed and no additional remarkable complaints except (see HPI) Past Patient History - Infectious Disease Hx of Infectious Diseases: None - Past Medical History & Family History Past Medical History?: Yes - Past Social History Smoking Status: Never Smoked - CARDIAC Hx Cardiac Disorders: No - PULMONARY Hx Asthma: Yes (never hospitalized) - NEUROLOGICAL Hx Neurological Disorder: No - HEENT Hx HEENT Problems: No - RENAL Hx Chronic Kidney Disease: No - ENDOCRINE/METABOLIC Hx Endocrine Disorders: No - HEMATOLOGICAL/ONCOLOGICAL Hx Blood Disorders: No - INTEGUMENTARY Hx Dermatological Problems: No - MUSCULOSKELETAL/RHEUMATOLOGICAL Hx Fractures: Yes (right hand/right ankle fracture) - GASTROINTESTINAL Hx Gastrointestinal Disorders: No - GENITOURINARY/GYNECOLOGICAL Hx Genitourinary Disorders: No - PSYCHIATRIC Hx Substance Use: Yes - SURGICAL HISTORY Hx Surgeries: Yes Hx Musculoskeletal Surgery: Yes (RIGHT ANKLE) - ANESTHESIA Hx Anesthesia: Yes Meds Allergies/Adverse Reactions: Allergies Allergy/AdvReac Type Severity Reaction Status Date / Time shrimp Allergy ANAPHYLAXIS Verified 07/17/18 13:42 Physical Exam - Constitutional Appears: Non-toxic, No Acute Distress - Head Exam Head Exam: ATRAUMATIC, NORMAL INSPECTION - Eye Exam Eye Exam: EOMI, Normal appearance, PERRL - ENT Exam ENT Exam: Mucous Membranes Moist - Neck Exam Neck exam: Positive for: Normal Inspection - Respiratory Exam Respiratory Exam: Clear to Auscultation Bilateral, NORMAL BREATHING PATTERN. absent: Rales, Rhonchi, Wheezes, Respiratory Distress - Cardiovascular Exam Cardiovascular Exam: REGULAR RHYTHM, +S1, +S2. absent: Tachycardia - GI/Abdominal Exam GI & Abdominal Exam: Normal Bowel Sounds, Soft. absent: Tenderness - Extremities Exam Extremities exam: Positive for: normal capillary refill, normal inspection, pedal pulses present. Negative for: calf tenderness, pedal edema Additional comments: (+) slight tremors on on outstretched hands - Neurological Exam Neurological exam: Alert, CN II-XII Intact, Oriented x3 Additional comments: 5/5 strength in upper and lower extremities - Psychiatric Exam Psychiatric exam: Normal Affect, Normal Mood - Skin Skin Exam: Dry, Normal Color, Warm Results - Vital Signs Recent Vital Signs: Last Vital Signs Temp 99.4 F 07/17/18 13:50 Pulse 113 H 07/17/18 22:16 Resp 22 07/17/18 22:16 BP 126/83 07/17/18 22:16 Pulse Ox 98 07/17/18 22:16 - Labs Result Diagrams: 07/18/18 04:57 07/18/18 04:57 Labs: Laboratory Results - last 24 hr 07/17/18 07/17/18 07/17/18 13:42 14:00 14:00 WBC 6.8 RBC 5.09 Hgb 14.4 Hct 43.4 MCV 85.3 MCH 28.3 MCHC 33.2 RDW 14.3 Plt Count 267 MPV 9.3 Neut % (Auto) 73.1 Lymph % (Auto) 20.2 [place] % (Auto) 5.5 Eos % (Auto) 0.5 Baso % (Auto) 0.7 Neut # (Auto) 4.9 Lymph # (Auto) 1.4 [place] # (Auto) 0.4 Eos # (Auto) 0.0 Baso # (Auto) 0.0 Sodium 136 Potassium 2.9 L Chloride 99 Carbon Dioxide 15 L Anion Gap 26 H BUN 9 Creatinine 0.7 L Est GFR ( Amer) > 60 Est GFR (Non-Af Amer) > 60 POC Glucose (mg/dL) 123 H Random Glucose 110 Calcium 8.9 Phosphorus 2.1 L Magnesium 1.2 L Total Bilirubin 0.7 AST 36 ALT 28 Alkaline Phosphatase 83 Total Protein 7.8 Albumin 4.9 Globulin 3.0 Albumin/Globulin Ratio 1.6 Urine Color Urine Clarity Urine pH Ur Specific [place] Urine Protein Urine Glucose (UA) Urine Ketones Urine Blood Urine Nitrate Urine Bilirubin Urine Urobilinogen Ur Leukocyte Esterase Urine WBC (Auto) Urine RBC (Auto) Ur Squamous Epith Cells Urine Bacteria Urine Opiates Screen Urine Methadone Screen Ur Barbiturates Screen Ur Phencyclidine Scrn Ur Amphetamines Screen U Benzodiazepines Scrn U Oth Cocaine Metabols U Cannabinoids Screen Alcohol, Quantitative 55 H 07/17/18 07/17/18 15:20 15:20 WBC RBC Hgb Hct MCV MCH MCHC RDW Plt Count MPV Neut % (Auto) Lymph % (Auto) [place] % (Auto) Eos % (Auto) Baso % (Auto) Neut # (Auto) Lymph # (Auto) [place] # (Auto) Eos # (Auto) Baso # (Auto) Sodium Potassium Chloride Carbon Dioxide Anion Gap BUN Creatinine Est GFR ( Amer) Est GFR (Non-Af Amer) POC Glucose (mg/dL) Random Glucose Calcium Phosphorus Magnesium Total Bilirubin AST ALT Alkaline Phosphatase Total Protein Albumin Globulin Albumin/Globulin Ratio Urine Color Yellow Urine Clarity Clear Urine pH 6.0 Ur Specific [place] 1.023 Urine Protein 2+ H Urine Glucose (UA) Normal Urine Ketones 2+ H Urine Blood Negative Urine Nitrate Negative Urine Bilirubin Negative Urine Urobilinogen Normal Ur Leukocyte Esterase Neg Urine WBC (Auto) < 1 Urine RBC (Auto) 1 Ur Squamous Epith Cells < 1 Urine Bacteria Rare Urine Opiates Screen Negative Urine Methadone Screen Negative Ur Barbiturates Screen Negative Ur Phencyclidine Scrn Negative Ur Amphetamines Screen Negative U Benzodiazepines Scrn Negative U Oth Cocaine Metabols Negative U Cannabinoids Screen Positive H Alcohol, Quantitative Assessment & Plan - Assessment and Plan (Free Text) Assessment: This is a 33 year old male with pmh of EtOH abuse, anxiety, asthma, who presents with 1 day history of bilateral hand cramping and contractures after a 2 day binge drinking episode. Treated with ketamine in the field and resolution of symptoms. Found to have electrolyte abnormalities and to be in alcoholic ketosis. Plan: Alcoholic ketosis with hypokalemia, hypomagnesemia AG is 23 on admission UA shows ketones LR at 150 mL/hr Mg noted to be 1.2 on admission; treated with Mg 1g IVPB Potassium 2.9 on admission; treated with Kdur 40 meq PO in the ED EKG shows ST at 117 bpm, normal intervals, normal axis, no STTW abnormalities as per ED physician. Folic acid, multivitamin, thiamine CIWV protocol f/u CMP, magnesium, phosphorous in am Psychiatry, Dr. Adler, consulted for eval for detox unit, recs appreciated Regular diet Dispo: telemetry observation; follow up labs in am Case was reviewed and discussed with attending physician, Dr. Donald Alvarez PGY1 <Jesus Bennett P - Last Filed: 07/18/18 08:38> Results - Vital Signs Recent Vital Signs: Last Vital Signs Temp 97.1 F L 07/18/18 06:42 Pulse 72 07/18/18 07:24 Resp 14 07/18/18 07:24 BP 121/89 07/18/18 07:24 Pulse Ox 99 07/18/18 07:24 - Labs Result Diagrams: 07/18/18 04:57 07/18/18 04:57 Labs: Laboratory Results - last 24 hr 07/17/18 07/17/18 07/17/18 13:42 14:00 14:00 WBC 6.8 RBC 5.09 Hgb 14.4 Hct 43.4 MCV 85.3 MCH 28.3 MCHC 33.2 RDW 14.3 Plt Count 267 MPV 9.3 Neut % (Auto) 73.1 Lymph % (Auto) 20.2 [place] % (Auto) 5.5 Eos % (Auto) 0.5 Baso % (Auto) 0.7 Neut # (Auto) 4.9 Lymph # (Auto) 1.4 [place] # (Auto) 0.4 Eos # (Auto) 0.0 Baso # (Auto) 0.0 Sodium 136 Potassium 2.9 L Chloride 99 Carbon Dioxide 15 L Anion Gap 26 H BUN 9 Creatinine 0.7 L Est GFR ( Amer) > 60 Est GFR (Non-Af Amer) > 60 POC Glucose (mg/dL) 123 H Random Glucose 110 Calcium 8.9 Phosphorus 2.1 L Magnesium 1.2 L Total Bilirubin 0.7 AST 36 ALT 28 Alkaline Phosphatase 83 Total Protein 7.8 Albumin 4.9 Globulin 3.0 Albumin/Globulin Ratio 1.6 Urine Color Urine Clarity Urine pH Ur Specific [place] Urine Protein Urine Glucose (UA) Urine Ketones Urine Blood Urine Nitrate Urine Bilirubin Urine Urobilinogen Ur Leukocyte Esterase Urine WBC (Auto) Urine RBC (Auto) Ur Squamous Epith Cells Urine Bacteria Urine Opiates Screen Urine Methadone Screen Ur Barbiturates Screen Ur Phencyclidine Scrn Ur Amphetamines Screen U Benzodiazepines Scrn U Oth Cocaine Metabols U Cannabinoids Screen Alcohol, Quantitative 55 H 07/17/18 07/17/18 07/18/18 15:20 15:20 04:57 WBC 10.2 RBC 5.04 Hgb 14.2 Hct 42.6 MCV 84.6 MCH 28.3 MCHC 33.4 RDW 14.4 Plt Count 207 MPV 9.3 Neut % (Auto) 61.7 Lymph % (Auto) 25.4 [place] % (Auto) 7.8 Eos % (Auto) 4.4 H Baso % (Auto) 0.7 Neut # (Auto) 6.3 Lymph # (Auto) 2.6 [place] # (Auto) 0.8 Eos # (Auto) 0.4 Baso # (Auto) 0.1 Sodium Potassium Chloride Carbon Dioxide Anion Gap BUN Creatinine Est GFR ( Amer) Est GFR (Non-Af Amer) POC Glucose (mg/dL) Random Glucose Calcium Phosphorus Magnesium Total Bilirubin AST ALT Alkaline Phosphatase Total Protein Albumin Globulin Albumin/Globulin Ratio Urine Color Yellow Urine Clarity Clear Urine pH 6.0 Ur Specific [place] 1.023 Urine Protein 2+ H Urine Glucose (UA) Normal Urine Ketones 2+ H Urine Blood Negative Urine Nitrate Negative Urine Bilirubin Negative Urine Urobilinogen Normal Ur Leukocyte Esterase Neg Urine WBC (Auto) < 1 Urine RBC (Auto) 1 Ur Squamous Epith Cells < 1 Urine Bacteria Rare Urine Opiates Screen Negative Urine Methadone Screen Negative Ur Barbiturates Screen Negative Ur Phencyclidine Scrn Negative Ur Amphetamines Screen Negative U Benzodiazepines Scrn Negative U Oth Cocaine Metabols Negative U Cannabinoids Screen Positive H Alcohol, Quantitative 07/18/18 04:57 WBC RBC Hgb Hct MCV MCH MCHC RDW Plt Count MPV Neut % (Auto) Lymph % (Auto) [place] % (Auto) Eos % (Auto) Baso % (Auto) Neut # (Auto) Lymph # (Auto) [place] # (Auto) Eos # (Auto) Baso # (Auto) Sodium 134 Potassium 4.3 Chloride 102 Carbon Dioxide 23 Anion Gap 13 BUN 9 Creatinine 0.6 L Est GFR ( Amer) > 60 Est GFR (Non-Af Amer) > 60 POC Glucose (mg/dL) Random Glucose 85 D Calcium 8.5 L Phosphorus 3.5 Magnesium 2.1 Total Bilirubin 1.4 H AST 62 H D ALT 24 Alkaline Phosphatase 54 Total Protein 7.4 Albumin 4.4 Globulin 3.0 Albumin/Globulin Ratio 1.4 Urine Color Urine Clarity Urine pH Ur Specific [place] Urine Protein Urine Glucose (UA) Urine Ketones Urine Blood Urine Nitrate Urine Bilirubin Urine Urobilinogen Ur Leukocyte Esterase Urine WBC (Auto) Urine RBC (Auto) Ur Squamous Epith Cells Urine Bacteria Urine Opiates Screen Urine Methadone Screen Ur Barbiturates Screen Ur Phencyclidine Scrn Ur Amphetamines Screen U Benzodiazepines Scrn U Oth Cocaine Metabols U Cannabinoids Screen Alcohol, Quantitative Attending/Attestation - Attestation I have personally seen and examined this patient.: Yes I have fully participated in the care of the patient.: Yes I have reviewed all pertinent clinical information: Yes Notes (Text): 07/18/18 08:35 Binge drinking difficulty in having control Alcohol ketosis probably presentation of tetany from low mag, secondary tachycardia Marijuan abuse Plan Counselled about alcohol control issues, AAA to help IVF Replace electrolytes, thiamine, mvt, fa See orders for detail.
[2018-07-18 05:00] LABS: BASO # 0.1 K/uL (0.0-0.2); BASO % 0.7 % (0.0-2.0); EOS # 0.4 K/uL (0.0-0.7); EOS % 4.4 % (0.0-4.0); HEMOGLOBIN 14.2 g/dL (12.0-18.0); LYMPH # 2.6 K/uL (1.0-4.3); LYMPH % 25.4 % (20.0-40.0); MEAN CELL VOLUME 84.6 fL (80.0-94.0); MEAN CORPUSCULAR HEMOGLOBIN 28.3 pg (27.0-31.0); MEAN CORPUSCULAR HGB CONC 33.4 g/dL (33.0-37.0); MEAN PLATELET VOLUME 9.3 fL (7.2-11.7); MONO # 0.8 K/uL (0.0-0.8); MONO % 7.8 % (0.0-10.0); NEUT # 6.3 K/uL (1.8-7.0); NEUT % 61.7 % (50.0-75.0); RBC 5.04 Mil/uL (4.40-5.90); RED CELL DISTRIBUTION WIDTH 14.4 % (11.5-14.5); WHITE BLOOD COUNT 10.2 K/uL (4.8-10.8)
[2018-07-18 05:20] LABS: ALB/GLOB RATIO 1.4 (1.0-2.1); ALBUMIN 4.4 g/dL (3.5-5.0); ALT/SGPT 24 U/L (21-72); AST/SGOT 62 U/L (17-59); BLOOD UREA NITROGEN 9 mg/dL (9-20); CALCIUM 8.5 mg/dl (8.6-10.4); GFR NON-AFRICAN AMERICAN > 60
[2018-07-18 06:43] VITALS: TEMP 97.1
--- NOTE | 2018-07-18 09:27 | PCM.PSYCH ---
Initial Psychiatric Evaluation - Initial Psychiatric Evaluation Type of Admission: Voluntary Legal Status: Capacity History of Present Illness and Precipitating Events: This is a 33 year old male with PMH of EtOH abuse, anxiety, asthma, who presents with 1 day history of bilateral hand cramping and tightening of the muscles after a 2 day binge drinking episode. Pt reports that he drank 1 bottle of wine and a lot of hard liquor. Current Medications: Active Medications Generic Name Dose Route Start Last Admin Trade Name Freq PRN Reason Stop Dose Admin Folic Acid 1 mg 07/18/18 10:00 07/18/18 09:18 Folic Acid PO 1 mg DAILY MARCELINO Administration Lactated Ringer's 1,000 mls @ 150 mls/hr 07/17/18 23:45 07/18/18 00:00 Lactated Ringer's IV 150 mls/hr .[id number] MARCELINO Administration Multivitamins 1 tab 07/18/18 10:00 Hexavitamin PO DAILY MARCELINO Thiamine HCl 100 mg 07/18/18 10:00 07/18/18 09:18 Vitamin B1 Tab PO 100 mg DAILY MARCELINO Administration Past Psychiatric History - Past Psychiatric History Pertinent Medical Hx (Current Medical&Sleep Prob, Allergies): Allergies Allergy/AdvReac Type Severity Reaction Status Date / Time shrimp Allergy ANAPHYLAXIS Verified 07/17/18 13:42 Albuterol HFA [Ventolin HFA 90 mcg/actuation (8 g)] 2 puff IH [id number] PRN 07/15/16 Folic Acid 1 mg PO DAILY #30 tab 11/23/17 Multivitamins [Hexavitamin] 1 tab PO DAILY #30 tab 11/23/17 Thiamine [Vitamin B1 Tab] 100 mg PO DAILY #30 tab 11/23/17 traZODone [Desyrel] 25 mg PO HS PRN #5 tab 11/23/17
[2018-07-18] MEDS ORDERED: Multiple Vitamins Tab PO SCH (10:00)
--- NOTE | 2018-07-18 12:12 | CP.PCM.DIS ---
Provider - Provider Date of Admission: 07/17/18 16:35 Attending physician: Joe Ro MD Consults: 07/18/18 07:59 Psychiatry Consult Routine Comment: Consulting Provider: Rhona Adler Consulting Physician: Rhona Adler Reason for Consult: eval for detox unit Time Spent in preparation of Discharge (in minutes): 35 Diagnosis - Discharge Diagnosis (1) Alcohol abuse Status: Chronic Hospital Course - Lab Results Lab Results: Most Recent Lab Values WBC 10.2 K/uL (4.8-10.8) 07/18/18 04:57 RBC 5.04 Mil/uL (4.40-5.90) 07/18/18 04:57 Hgb 14.2 g/dL (12.0-18.0) 07/18/18 04:57 Hct 42.6 % (35.0-51.0) 07/18/18 04:57 MCV 84.6 fL (80.0-94.0) 07/18/18 04:57 MCH 28.3 pg (27.0-31.0) 07/18/18 04:57 MCHC 33.4 g/dL (33.0-37.0) 07/18/18 04:57 RDW 14.4 % (11.5-14.5) 07/18/18 04:57 Plt Count 207 K/uL (130-400) 07/18/18 04:57 MPV 9.3 fL (7.2-11.7) 07/18/18 04:57 Neut % (Auto) 61.7 % (50.0-75.0) 07/18/18 04:57 Lymph % (Auto) 25.4 % (20.0-40.0) 07/18/18 04:57 [place] % (Auto) 7.8 % (0.0-10.0) 07/18/18 04:57 Eos % (Auto) 4.4 % (0.0-4.0) H 07/18/18 04:57 Baso % (Auto) 0.7 % (0.0-2.0) 07/18/18 04:57 Neut # (Auto) 6.3 K/uL (1.8-7.0) 07/18/18 04:57 Lymph # (Auto) 2.6 K/uL (1.0-4.3) 07/18/18 04:57 [place] # (Auto) 0.8 K/uL (0.0-0.8) 07/18/18 04:57 Eos # (Auto) 0.4 K/uL (0.0-0.7) 07/18/18 04:57 Baso # (Auto) 0.1 K/uL (0.0-0.2) 07/18/18 04:57 Sodium 134 mmol/L (132-148) 07/18/18 04:57 Potassium 4.3 mmol/L (3.6-5.2) 07/18/18 04:57 Chloride 102 mmol/L (98-107) 07/18/18 04:57 Carbon Dioxide 23 mmol/L (22-30) 07/18/18 04:57 Anion Gap 13 (10-20) 07/18/18 04:57 BUN 9 mg/dL (9-20) 07/18/18 04:57 Creatinine 0.6 mg/dL (0.8-1.5) L 07/18/18 04:57 Est GFR ( Amer) > 60 07/18/18 04:57 Est GFR (Non-Af Amer) > 60 07/18/18 04:57 POC Glucose (mg/dL) 123 mg/dL (65-110) H 07/17/18 13:42 Random Glucose 85 mg/dL (75-110) D 07/18/18 04:57 Calcium 8.5 mg/dl (8.6-10.4) L 07/18/18 04:57 Phosphorus 3.5 mg/dL (2.5-4.5) 07/18/18 04:57 Magnesium 2.1 mg/dL (1.6-2.3) 07/18/18 04:57 Total Bilirubin 1.4 mg/dL (0.2-1.3) H 07/18/18 04:57 AST 62 U/L (17-59) H D 07/18/18 04:57 ALT 24 U/L (21-72) 07/18/18 04:57 Alkaline Phosphatase 54 U/L (38-126) 07/18/18 04:57 Total Protein 7.4 g/dL (6.3-8.3) 07/18/18 04:57 Albumin 4.4 g/dL (3.5-5.0) 07/18/18 04:57 Globulin 3.0 gm/dL (2.2-3.9) 07/18/18 04:57 Albumin/Globulin Ratio 1.4 (1.0-2.1) 07/18/18 04:57 Urine Color Yellow (YELLOW) 07/17/18 15:20 Urine Clarity Clear (Clear) 07/17/18 15:20 Urine pH 6.0 (5.0-8.0) 07/17/18 15:20 Ur Specific [place] 1.023 (1.003-1.030) 07/17/18 15:20 Urine Protein 2+ mg/dL (NEGATIVE) H 07/17/18 15:20 Urine Glucose (UA) Normal mg/dL (Normal) 07/17/18 15:20 Urine Ketones 2+ mg/dL (NEGATIVE) H 07/17/18 15:20 Urine Blood Negative (NEGATIVE) 07/17/18 15:20 Urine Nitrate Negative (NEGATIVE) 07/17/18 15:20 Urine Bilirubin Negative (NEGATIVE) 07/17/18 15:20 Urine Urobilinogen Normal mg/dL (0.2-1.0) 07/17/18 15:20 Ur Leukocyte Esterase Neg [place]/uL (Negative) 07/17/18 15:20 Urine WBC (Auto) < 1 /hpf (0-5) 07/17/18 15:20 Urine RBC (Auto) 1 /hpf (0-3) 07/17/18 15:20 Ur Squamous Epith Cells < 1 /hpf (0-5) 07/17/18 15:20 Urine Bacteria Rare (<OCC) 07/17/18 15:20 Urine Opiates Screen Negative (NEGATIVE) 07/17/18 15:20 Urine Methadone Screen Negative (NEGATIVE) 07/17/18 15:20 Ur Barbiturates Screen Negative (NEGATIVE) 07/17/18 15:20 Ur Phencyclidine Scrn Negative (NEGATIVE) 07/17/18 15:20 Ur Amphetamines Screen Negative (NEGATIVE) 07/17/18 15:20 U Benzodiazepines Scrn Negative (NEGATIVE) 07/17/18 15:20 U Oth Cocaine Metabols Negative (NEGATIVE) 07/17/18 15:20 U Cannabinoids Screen Positive (NEGATIVE) H 07/17/18 15:20 Alcohol, Quantitative 55 mg/dl (0-10) H 07/17/18 14:00 - Hospital Course Hospital Course: Upon Admission This is a 33 year old male with PMH of EtOH abuse, anxiety, asthma, who presents with 1 day history of bilateral hand cramping and tightening of the muscles after a 2 day binge drinking episode. Pt reports that he drank 1 bottle of wine and a lot of hard liquor. Treated with ketamine in the field and resolution of symptoms. Pt's last drink was the night of 07/16/18. Pt denies fever, chills, chest pain, sob, abdominal pain, n/v/d. Pt is currently complaining of a frontal headache, nonradiating. Denies visual changes. Hospital Course Patient admitted to hospital for bilateral hand cramping and myalgias after binging episode. Electrolytes were repleted. Hand cramping resolved with ketamine administeration likely 2/2 to low magnesium. Patient educated to follow up with alcohol related programs. Discharge Plan 1. Patient is stable for discharge to home as per Dr. Lopes. 2. Patient should follow up with primary medical doctor within a week of discharge from hospital. 3. Patient should continue all home medications. Patient educated to attempt to quit his drinking habits. 4. Patient should return to hospital if symptoms worsen or recur. 5. Patient understands the plan as above and agrees. Discharge Exam - Head Exam Head Exam: ATRAUMATIC, NORMAL INSPECTION - Eye Exam Eye Exam: EOMI, Normal appearance. absent: Nystagmus, Scleral icterus - ENT Exam ENT Exam: Mucous Membranes Dry - Respiratory Exam Respiratory Exam: Clear to PA & Lateral, NORMAL BREATHING PATTERN. absent: Rales, Rhonchi, Wheezes - Cardiovascular Exam Cardiovascular Exam: REGULAR RHYTHM, +S1, +S2. absent: Tachycardia - GI/Abdominal Exam GI & Abdominal Exam: Normal Bowel Sounds, Soft. absent: Diminished Bowel Sounds, Distended, Firm, Guarding, Tenderness - Extremities Exam Extremities exam: normal inspection - Neurological Exam Neurological exam: Alert, Oriented x3 - Psychiatric Exam Psychiatric exam: Normal Affect, Normal Mood - Skin Skin Exam: Dry, Intact, Normal Color Discharge Plan - Discharge Medications Prescriptions: Folic Acid 1 mg PO DAILY #30 tab Multivitamins [Hexavitamin] 1 tab PO DAILY #30 tab Thiamine [Vitamin B1 Tab] 100 mg PO DAILY #30 tab - Follow Up Plan Condition: FAIR Disposition: HOME/ ROUTINE Additional Instructions: 1. Patient is stable for discharge to home as per Dr. Lopes. 2. Patient should follow up with primary medical doctor within a week of discharge from hospital. 3. Patient should continue all home medications. Patient educated to attempt to quit his drinking habits. 4. Patient should return to hospital if symptoms worsen or recur. 5. Patient understands the plan as above and agrees. Referrals: [facility] [Outside]
[2018-07-18 13:58] VITALS: BP 124/78; PULSE 89; RESP 16; O2SAT 99
== END 2018-07-18 14:11 | disposition home or self-care (01) ==
LOC: C.ER 13:32 → C.9E 16:35
PROVIDERS: ADMIT Family Medicine; ATTEND Family Medicine
DX: F10.10 Alcohol abuse, uncomplicated (principal); E87.6 Hypokalemia; E88.89 Other specified metabolic disorders; E83.42 Hypomagnesemia; F12.10 Cannabis abuse, uncomplicated; J45.909 Unspecified asthma, uncomplicated; F41.9 Anxiety disorder, unspecified; Z79.899 Other long term (current) drug therapy; Z91.013 Allergy to seafood
CPT/HCPCS: 71045; 80053; 80320; 80324; 80345; 80346; 80349; 80353; 80358; 80361; 81001; 82948; 83735; 83992; 84100; 85025; 93005; 96360; 96365; 96374; G0378; J2060; J3411; J3475; J7030; J7120